=== PATIENT | female | born 2000 | race Caucasian/White ===

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

== ENCOUNTER 2022-01-29 15:26 | Emergency (ER) | payer OTHER, SELFPAY ==
--- NOTE | 2022-01-29 16:54 | EXP.UTC ---
Discharge Plan Disposition Patient Disposition: Home, Self-Care Condition: Good Prescriptions Prescriptions: New tmwaczbvahjcqhj-ngnguvsnj-QJ [Bromfed DM] 2-30-10 mg/5 mL Syrup 5 ml PO Q6H PRN (Reason: Cough) Qty: 240 0RF ondansetron 4 mg Tablet,Disintegrating 4 mg PO Q8H PRN (Reason: Nausea) Qty: 9 0RF No Action hydroxyzine HCl 25 mg tablet 25 mg PO BID PRN (Reason: anxiety) Qty: 60 5RF norgestimate-ethinyl estradiol [Evz-Bf-Xmlnjnbe] 0.18/0.215/0.25 mg-25 mcg tablet 1 tab PO DAILY Qty: 84 3RF dexmethylphenidate [Focalin XR] 15 mg capsule,ER biphasic 50-50 15 mg PO DAILY Qty: 30 0RF Referrals Follow up/Referrals: Provider,Referral, MD [Primary Care Provider] - See instructions Activity Restrictions/Add. Instructions Additional Instructions/Restrictions: Encourage her to drink plenty of fluids. Give her the medications as directed. Give her tylenol or ibuprofen for pain or fever. Follow up with her regular doctor. GO TO THE ER FOR ANY WORSENING SYMPTOMS Clinical Impressions Clinical Impression: Viral syndrome Instructions Patient Instructions: DI for Viral Syndrome Discharge ED Provider: Sebastián Mueller [facility] General Stated complaint: cough, soa, congestion, sore throat Time Seen by Provider: 01/29/22 16:54 History of Present Illness Provider Complaint: She states that for the past 2 days she has had sore throat, chills, body aches and low grade fever. Related Data Previous Rx's Medication Instructions Recorded hydroxyzine HCl 25 mg tablet 25 mg PO BID PRN anxiety #60 tabs 01/23/22 norgestimate 0.18 mg/0.215 mg/0.25 1 tab PO DAILY #84 tabs 01/23/22 mg-ethinyl estradiol 25 mcg tablet (Zuz-Qt-Yctuywkc) dexmethylphenidate 15 mg 15 mg PO DAILY #30 caps 01/24/22 capsule,extended release [id number] (Focalin XR) azfrlwtyiudcmrk-kzhyuvgdgilvfch-YY 5 ml PO Q6H PRN Cough #240 mL 01/29/22 2 mg-30 mg-10 mg/5 mL oral syrup (Bromfed DM) ondansetron 4 mg disintegrating 4 mg PO Q8H PRN Nausea #9 tabs 01/29/22 tablet Allergies Allergy/AdvReac Type Severity Reaction Status Date / Time No Known Allergies Allergy Verified 01/29/22 17:19 PFSH PFSH Medical History Anxiety Attention Deficit Hyperactivity Disorder (ADHD) Depression Social History Smoking Status: Current some day smoker alcohol intake: never current occupational status: unemployed Travel in the last 8 weeks: None ROS Obtained: Yes All systems reviewed & no additional complaints except as documented Constitutional Constitutional: Reports chills and Reports fever(s) Eyes Eyes: Denies eye discharge ENT Ears, Nose, Mouth, and Throat: Reports as per HPI Cardiovascular Cardiovascular: Denies chest pain Respiratory Respiratory: Denies chest congestion and Reports cough Gastrointestinal Gastrointestingal: Reports nausea; Denies abdominal pain, constipation, cramping, diarrhea or vomiting Musculoskeletal Musculoskeletal: Denies arthralgias Integumentary/Breasts Skin/Breast: Denies rash Neurologic Neurologic: Denies paresthesias Physical Exam General General appearance: alert and in no apparent distress Head Head exam: atraumatic, normocephalic and normal inspection Eye Eye exam: Present normal appearance, PERRL and EOMI ENT ENT exam: Present normal exam, normal oropharynx, mucous membranes moist, TM's normal bilaterally and normal external ear exam Neck Neck exam: Present normal inspection, full ROM and trachea midline; Absent meningismus or lymphadenopathy Chest Chest inspection: Present normal inspection and symmetric chest wall rise; Absent tenderness Respiratory Respiratory exam: Present normal lung sounds bilaterally; Absent respiratory distress Cardiovascular Cardiovascular exam: Present regular rate and normal rhythm; Absent JVD Abdominal Exam Abdominal exam
[2022-01-29 17:18] VITALS: BP 119/75; PULSE 95; RESP 17; TEMP 36.7; O2SAT 99; BMI 37.3
[2022-01-29 18:12] VITALS: BP 119/75; PULSE 95; RESP 17; TEMP 36.7
[2022-01-29 18:19] LABS: Adenovirus,PCR Not Detected (NotDetected); Bordetella Pertussis Not Detected (NotDetected); Chlamydophila Pneumoniae, PCR Not Detected (NotDetected); Coronavirus 19, PCR Not Detected (NotDetected); Coronavirus 229E Not Detected (NotDetected); Coronavirus NL63 Not Detected (NotDetected); Coronavirus OC43 Not Detected (NotDetected); Coronovirus HKU1,PCR Not Detected (NotDetected); Human Metapneumovirus Not Detected (NotDetected); Influenza A, PCR Not Detected (NotDetected); Influenza AH1, 2009 Not Detected (NotDetected); Influenza AH1, PCR Not Detected (NotDetected); Influenza B, PCR Not Detected (NotDetected); Mycoplasma Pneumoniae, PCR Not Detected (NotDetected); Parainfluenza 1, PCR Not Detected (NotDetected); Parainfluenza 2, PCR Not Detected (NotDetected); Parainfluenza 3, PCR Not Detected (NotDetected); Parainfluenza 4, PCR Not Detected (NotDetected); Respiratory Syncytial Virus Not Detected (NotDetected); Rhinovirus/Enterovirus Not Detected (NotDetected)
[2022-01-31 10:52] LABS: Influenza AH3,PCR Detected (NotDetected)
== END 2022-01-29 18:12 | disposition home or self-care (01) ==
PROVIDERS: Emergency Provider Nurse Practitioner Family
DX: J10.1 Influenza due to other identified influenza virus with other respiratory manifestations
CPT/HCPCS: 87581; 87632; 87798; 99212; C9803; G0463; U0003; U0005

== ENCOUNTER 2022-03-25 18:54 | Emergency (ER) | payer OTHER, SELFPAY ==
[2022-03-25 18:57] VITALS: BP 143/69; PULSE 96; RESP 16; TEMP 36.6; O2SAT 99; BMI 40.2
--- NOTE | 2022-03-25 19:29 | ECG_ITS ---
APPROVED REPORT Exam: Resting ECG HR:97 bpm ECG Measurements Heart Rate 97 AXES FL 170 P 64 QRSd 98 QRS 139 QT 335 T 59 QTc 389 Conclusion SINUS RHYTHM INDETERMINATE AXIS LOW QRS VOLTAGE IN PRECORDIAL LEADS [QRS DEFLECTION < 1.0 mV IN CHEST LEADS] PATTERN CONSISTENT WITH PULMONARY DISEASE ABNORMAL ECG UNCONFIRMED REPORT Electronically signed by : Alexey Ramirez MD 03/26/2022 21:32:40
[2022-03-25 19:38] LABS: Coronavirus 19, PCR Not Detected (NotDetected); Influenza A, PCR Not Detected (NotDetected); Influenza B, PCR Not Detected (NotDetected)
[2022-03-25 19:53] LABS: Strep Scrn Group A (Rapid) Negative (Negative)
--- NOTE | 2022-03-25 19:58 | HMH.EDGENADL ---
Discharge Plan Disposition Patient Disposition: Home, Self-Care Condition: Good Prescriptions Prescriptions: New fluticasone propionate [Allergy Relief (fluticasone)] 50 mcg/actuation spray,suspension 2 spray intranasal DAILY PRN (Reason: allergy symptoms) Qty: 16 0RF Rx Instructions: administer into each nostril cetirizine 10 mg tablet 10 mg PO DAILY Qty: 30 0RF omeprazole 40 mg capsule,delayed release(DR/EC) 40 mg PO DAILY Qty: 30 0RF No Action hydroxyzine HCl 25 mg tablet 25 mg PO BID PRN (Reason: anxiety) Qty: 60 5RF norgestimate-ethinyl estradiol [Lcn-Br-Qanpsnde] 0.18/0.215/0.25 mg-25 mcg tablet 1 tab PO DAILY Qty: 84 3RF metronidazole [Flagyl] 375 mg capsule 375 mg PO Q8H Qty: 21 0RF dexmethylphenidate [Focalin XR] 15 mg capsule,ER biphasic 50-50 15 mg PO DAILY Qty: 30 0RF ondansetron 4 mg Tablet,Disintegrating 4 mg PO Q8H PRN (Reason: Nausea) Qty: 9 0RF Referrals Follow up/Referrals: Radha Tay PA [Primary Care Provider] - See instructions Activity Restrictions/Add. Instructions Additional Instructions/Restrictions: You were evaluated in the emergency department today. At this time, we feel that your symptoms are due to both allergic rhinitis as well as gastroesophageal reflux. Please hand picker your prescriptions and take them as prescribed. Follow-up with your primary care provider over the next 48 hours. Return to the emergency department for any new or worsening symptoms. Clinical Impressions Clinical Impression: GERD (gastroesophageal reflux disease), Allergic rhinitis Instructions Patient Instructions: Allergic Rhinitis, DI for Gastroesophageal Reflux Disease (GERD) Discharge ED Provider: Pura Eduardo General Adult HPI General Chief complaint: Headache Stated complaint: crawford DIZZY,CONGESTION BURNING IN CHEST Time Seen by Provider: 03/25/22 19:22 Mode of Arrival: Ambulatory Source of Information: Patient Limitations: No Limitations Description of Symptoms (Recalled from ER Triage Doc. by RN): pt c/o head ache and dizzy since last night the pt states also that she has had some burning in her chest that goes down to the belly pt has no hx o fgi related issues pt stated family hx of ulcers History of Present Illness HPI narrative: This patient is a 22-year-old female with past medical history of ADHD presented to the emergency department for evaluation with concern for multiple complaints. Patient states that she has been having headaches, congestion, nausea, and reflux symptoms for the past few days. Siblings at home have also had symptoms of congestion, sore throat, and abdominal pain. Patient also states that she feels lightheaded. She states that her symptoms come and go, and nothing seems to make them better or worse. She states that she has been eating a lot of hot Cheetos and she is concerned that she may have a stomach ulcer, as her dad has a history of stomach ulcers. No other concerns noted at this time. Related Data Previous Rx's Medication Instructions Recorded hydroxyzine HCl 25 mg tablet 25 mg PO BID PRN anxiety #60 tabs 01/23/22 norgestimate 0.18 mg/0.215 mg/0.25 1 tab PO DAILY #84 tabs 01/23/22 mg-ethinyl estradiol 25 mcg tablet (Pvp-Qs-Pbsjokga) ondansetron 4 mg disintegrating 4 mg PO Q8H PRN Nausea #9 tabs 01/29/22 tablet dexmethylphenidate 15 mg 15 mg PO DAILY #30 caps 02/19/22 capsule,extended release [id number] (Focalin XR) metronidazole 375 mg capsule 375 mg PO Q8H #21 caps 02/19/22 (Flagyl) cetirizine 10 mg tablet 10 mg PO DAILY #30 tabs 03/25/22 fluticasone propionate 50 2 spray intranasal DAILY PRN 03/25/22 mcg/actuation nasal allergy symptoms #16 grams spray,suspension (Allergy Relief (fluticasone)) omeprazole 40 mg capsule,delayed 40 mg PO DAILY #30 caps 03/25/22 release Allergies Allergy/AdvReac Type Severity Reaction Status Date / Time No Known Allergies Allergy Verified
[2022-03-25 20:26] VITALS: BP 137/74; PULSE 89; RESP 16; TEMP 36.6; O2SAT 99
== END 2022-03-25 20:33 | disposition home or self-care (01) ==
PROVIDERS: Emergency Provider Emergency Medicine; PCP Physician Assistant
DX: K21.9 Gastro-esophageal reflux disease without esophagitis (principal); J30.9 Allergic rhinitis, unspecified; R42 Dizziness and giddiness; R51.9 Headache, unspecified; F90.9 Attention-deficit hyperactivity disorder, unspecified type; F41.9 Anxiety disorder, unspecified; F17.210 Nicotine dependence, cigarettes, uncomplicated; Z20.822 Contact with and (suspected) exposure to COVID-19
CPT/HCPCS: 87430; 93005; 99284; C9803; U0003; U0005

== ENCOUNTER → 2022-03-31 16:40 | Outpatient (CLI) | payer OTHER, SELFPAY ==
[2022-03-31 20:42] LABS: Basophils # 0.1 K/mm3 (0-0.2); Basophils % 0.8 % (0.1-2.0); Eosinophils # 0.4 K/mm3 (0.0-0.4); Eosinophils % 3.4 % (0.1-12.0); Hematocrit 38.3 % (37.0-47.0); Hemoglobin 12.7 g/dL (12.2-16.2); Lymphocytes # 4.1 K/mm3 (0.7-4.5); Lymphocytes % 39.9 % (10-50); Mean Corpuscular HGB Conc 33.3 g/dL (31.8-35.4); Mean Corpuscular Volume 81.1 fl (81-99); Mean Platelet Volume 9.1 fl (7.4-10.4); Monocytes # 0.4 K/mm3 (0.1-1.0); Neutrophils # 5.4 K/mm3 (1.8-7.8); Platelet Count 307 K/mm3 (142-424); Red Blood Count 4.72 M/mm3 (4.20-5.40); Red Cell Distribution Width 15.3 % (11.5-17.5); White Blood Count 10.3 K/mm3 (4.5-13.0)
[2022-03-31 20:53] LABS: Alanine Aminotransferase 21 U/L (12-78); Albumin Level 4.4 g/dl (3.5-5.0); Albumin/Globulin Ratio 1.4 (1.1-1.8); Alkaline Phosphatase 106 U/L (38-126); Anion Gap 12.9 mEq/L (5-15); Aspartate Amino Transferase 28 U/L (14-36); Bilirubin,Total 0.2 mg/dl (0.2-1.3); Blood Urea Nitrogen 8 mg/dl (7-17); Calcium 8.4 mg/dl (8.4-10.2); Carbon Dioxide 27 mmol/L (22.0-30.0); Chloride 105 mmol/L (98-107); Chol/HDL Ratio 3.4 (1-3.5); Cholesterol 168 mg/dl (140-200); Estimated Glomerular Filt Rate 127 ml/min (>60); GFR (African American) 154 ML/MIN (>60); Globulin 3.2 g/dL (1.3-3.2); Glucose 90 mg/dl (74-100); HDL Cholesterol 50 mg/dl (40-60); Lipase 88 U/L (23-300); Potassium 3.9 mmoL/L (3.5-5.1); Sodium 141 mmol/L (136-145); Total Protein,Serum 7.6 g/dl (6.3-8.2); Triglycerides 148 mg/dl (30-150); VLDL Cholesterol 30 mg/dL (0-40)
[2022-03-31 21:04] LABS: Direct LDL Cholesterol 86.94 mg/dL (100-129)
[2022-03-31 21:10] LABS: 25-OH Vitamin D, Total 34.4 ng/mL (30-100)
[2022-03-31 21:11] LABS: Free T4 (Free Thyroxine) 0.91 ng/dl (0.78-2.19)
[2022-03-31 21:23] LABS: Thyroid Stimulating Hormone 1.65 uIU/mL (0.465-4.68)
== END ==
PROVIDERS: PCP Emergency Medicine; Visit Provider Emergency Medicine
DX: R10.10 Upper abdominal pain, unspecified (principal); E55.9 Vitamin D deficiency, unspecified
CPT/HCPCS: 80053; 80061; 82306; 83690; 84439; 84443; 85025

== ENCOUNTER 2022-04-03 11:37 | Day surgery (SDC) | payer OTHER, SELFPAY ==
[2022-04-02 10:01] VITALS: BMI 42.8
[2022-04-03 11:54] VITALS: BP 136/76; PULSE 90; RESP 18; TEMP 36.6; O2SAT 97
[2022-04-03 12:05] LABS: Urine Pregnancy, HCG Qual. Negative (Negative)
--- NOTE | 2022-04-03 12:13 | P.PN_ITS ---
[facility] Disclaimer: The information contained in this section may have been updated after the patient was seen, as this information can be updated by other users. Medical History Anxiety Attention Deficit Hyperactivity Disorder (ADHD) Depression Surgical History No significant past surgical history Family History Other Family history of myocardial infarction Family history of stroke Social History Smoking Status: Former smoker alcohol intake: current substance use type: denies use current occupational status: unemployed Travel in the last 8 weeks: None household members: family housing: house lives independently: No education level: high school caffeine: Yes special tonia needs: No agree to transfusion: No do you feel safe at home: Yes victim of physical abuse: No victim of emotional abuse: No victim of sexual abuse: No would you like helpful sources: No [facility] Anesthesia Checklist Patient Identification Patient Identification: Arm Band and Verbal (Name & ) Structural Data Admitted From: Home Planned Operative Procedure/s: EGD Consent for Planned Operative Procedure(s) Verified: Yes NPO Status Verified Time NPO: 00:00 Airway Assessment C-Spine Mobility Assessed: Yes TMJ Mobility Assessed: Yes Dentition: Good Dentition Neurological Assessment Level of Consciousness: Awake Hx Seizures: No Numbness or tingling in extremities: No Anesthesia Plan Anesthesia Risk discussed: Yes Anesthesia Plan: Verified ASA Class: II Anesthesia Type: MAC
[2022-04-03 12:21] VITALS: O2SAT 97
--- NOTE | 2022-04-03 12:29 | HMH.SCOPE ---
Procedure: Date: 04/03/22 Patient Date of :: 2000 Procedure Performed:: EGD & biopsies Indications:: Abdominal pain, nausea/vomiting Performing Provider:: Brady Bhardwaj MD Referring Provider:: George Hopson Sedation:: Propofol Procedure:: The gastroscope was gently passed through the incisoral orifice into the oral cavity and under direct visualization the esophagus was intubated. The endoscope was passed down the esophagus, through the stomach, and into the duodenum. Color, texture, mucosa, and anatomy of the esophagus, stomach, and duodenum were carefully examined with the scope. Findings:: Oropharynx: normal Esophagus: normal EG Junction: intact at 40 cm Cardia: normal Fundus: normal Body: normal, random biopsies obtained for evaluation of h.pylori Antrum: normal Duodenal bulb: normal Duodenum (second and third portion): normal Impression: Normal EGD. No evidence of ulcer disease or hiatus hernia. Specimens:: Gastric Recommendations:: Conservative symptomatic therapy only Complications:: None Estimated blood obtained (mL): 0
[2022-04-03 12:32] VITALS: BP 111/61; PULSE 84; RESP 16; TEMP 36.9; O2SAT 95
[2022-04-03 12:42] VITALS: BP 103/63; PULSE 83; RESP 14; O2SAT 95
[2022-04-03 12:52] VITALS: BP 113/51; PULSE 82; RESP 16; O2SAT 95
[2022-04-03 13:02] VITALS: BP 133/93; PULSE 83; RESP 16; TEMP 36.6; O2SAT 99
== END 2022-04-03 13:10 | disposition home or self-care (01) ==
PROVIDERS: PCP Emergency Medicine; Visit Provider Internal Medicine Gastroenterology
PROC: 0DJ08ZZ Inspection of Upper Intestinal Tract, Via Natural or Artificial Opening Endoscopic (ICD-10-PCS; CPT 43235; principal; 2022-04-03 13:00)
DX: K21.9 Gastro-esophageal reflux disease without esophagitis (principal); R10.9 Unspecified abdominal pain; R11.2 Nausea with vomiting, unspecified; K29.70 Gastritis, unspecified, without bleeding; B96.81 Helicobacter pylori [H. pylori] as the cause of diseases classified elsewhere; Z79.899 Other long term (current) drug therapy
CPT/HCPCS: 43239; 81025

== ENCOUNTER → 2022-04-22 09:05 | Outpatient (CLI) | payer OTHER, SELFPAY ==
--- NOTE | 2022-04-22 09:05 | US_ITS ---
FINAL REPORT TECHNIQUE: Sonographic images of the right upper quadrant were obtained. CLINICAL HISTORY: abdominal pain FINDINGS: The liver is homogeneous. There is no focal hepatic lesion or intrahepatic biliary dilatation. The gallbladder is well filled. There are no gallstones. There is no pericholecystic fluid collection or gallbladder wall thickening. The common duct measures 0.14 cm which is within normal limits. The pancreatic tail is partially obscured by bowel gas. Otherwise, it has a normal appearance. The right kidney measures 12 cm in yuoz-ri-axpk length. There is no hydronephrosis, mass, or stone. There is no right upper quadrant ascites. IMPRESSION: Unremarkable right upper quadrant ultrasound. No gallstones, pericholecystic fluid collection, or gallbladder wall thickening. Reviewed, Interpreted and Dictated by Devorah Mendoza MD Transcribed by Shazia Ramey Authenticated and . [facility]
== END ==
PROVIDERS: PCP Physician Assistant; Visit Provider Emergency Medicine
DX: R10.10 Upper abdominal pain, unspecified (principal)
CPT/HCPCS: 76705

== ENCOUNTER 2022-06-01 18:31 | Emergency (ER) | payer OTHER, SELFPAY ==
[2022-06-01 18:34] VITALS: BP 138/83; PULSE 101; RESP 18; O2SAT 98; BMI 41.1
--- NOTE | 2022-06-01 19:12 | PC.NURSE ---
urine collected and sent to lab, no further needs at this time. Call light within reach
--- NOTE | 2022-06-01 19:16 | HMH.EDGENADL ---
Discharge Plan Disposition Patient Disposition: Home, Self-Care Condition: Good Prescriptions Prescriptions: No Action hydroxyzine HCl 25 mg tablet 25 mg PO BID PRN (Reason: anxiety) Qty: 60 5RF sertraline 50 mg tablet 50 mg PO DAILY Qty: 30 0RF clarithromycin 500 mg tablet 500 mg PO BID 14 Days Qty: 28 0RF lansoprazole [Prevacid] 30 mg capsule,delayed release(DR/EC) 30 mg PO DAILY 14 Days Qty: 14 0RF dexmethylphenidate [Focalin XR] 15 mg capsule,ER biphasic 50-50 15 mg PO DAILY Qty: 30 0RF spinosad [Natroba] 0.9 % suspension 120 ml topical Q7D Qty: 120 1RF cetirizine 10 mg tablet 10 mg PO DAILY omeprazole 40 mg capsule,delayed release(DR/EC) 40 mg PO DAILY norgestimate-ethinyl estradiol [Zjb-Wl-Evzvqezv] 0.18/0.215/0.25 mg-25 mcg tablet 1 tab PO DAILY ondansetron 4 mg Tablet,Disintegrating 4 mg PO Q8H PRN (Reason: Nausea) Qty: 9 0RF fluticasone propionate [Allergy Relief (fluticasone)] 50 mcg/actuation spray,suspension 2 spray intranasal DAILY PRN (Reason: allergy symptoms) Qty: 16 0RF Rx Instructions: administer into each nostril Referrals Follow up/Referrals: Radha Tay PA [Primary Care Provider] - See instructions Clinical Impressions Clinical Impression: Hemorrhoids Instructions Patient Instructions: DI for Hemorrhoids Discharge ED Provider: Colton Amaya General Adult HPI General Chief complaint: Vaginal Bleeding Stated complaint: Bleeding from vag Possible retal bleeding Time Seen by Provider: 06/01/22 18:35 Mode of Arrival: Ambulatory Source of Information: Patient Limitations: No Limitations Description of Symptoms (Recalled from ER Triage Doc. by RN): Presents POV due to multiple complaints. PAtiet reports 1 episode of bright red blood on toilet paper after bowel moveent last night. Denies abdominal pain or further episodes. Patiet also reports concerns for vaginal bleeding. Patient states pink tinged olor on toilet paper after wiping multiple times today. LMP Beginning of April. History of Present Illness HPI narrative: Patient is a 22-year-old female with no pertinent past medical history who presents with multiple complaints. She says that last night she had an episode in which she had bright red blood on toilet paper after she went to the bathroom. She says that this did not happen again but she says that today she felt like there was something wet in her underwear and noted a pink-tinged discharge. Her last known period was the beginning of April. She is wondering if she could potentially be at this time. Denies any abdominal pain. Denies any urinary symptoms. Related Data Home Medications Medication Instructions Recorded Confirmed cetirizine 10 mg tablet 10 mg PO DAILY allergies 04/02/22 04/16/22 norgestimate 0.18 mg/0.215 mg/0.25 1 tab PO DAILY control 04/02/22 04/16/22 mg-ethinyl estradiol 25 mcg tablet (Rqn-Sw-Jrukylul) omeprazole 40 mg capsule,delayed 40 mg PO DAILY Reflux/Acid reflux 04/02/22 04/16/22 release Previous Rx's Medication Instructions Recorded hydroxyzine HCl 25 mg tablet 25 mg PO BID PRN anxiety #60 tabs 01/23/22 ondansetron 4 mg disintegrating 4 mg PO Q8H PRN Nausea #9 tabs 01/29/22 tablet fluticasone propionate 50 2 spray intranasal DAILY PRN 03/25/22 mcg/actuation nasal allergy symptoms #16 grams spray,suspension (Allergy Relief (fluticasone)) clarithromycin 500 mg tablet 500 mg PO BID 14 days #28 tabs 04/08/22 lansoprazole 30 mg capsule,delayed 30 mg PO DAILY 14 days #14 caps 04/08/22 release (Prevacid) dexmethylphenidate 15 mg 15 mg PO DAILY ADHD #30 caps 04/16/22 capsule,extended release [id number] (Focalin XR) sertraline 50 mg tablet 50 mg PO DAILY #30 tabs 04/16/22 spinosad 0.9 % topical suspension 120 ml topical Q7D 2 doses #120 mL 05/01/22 (Natroba) Allergies Allergy/AdvReac Type Severity Reaction Status Date / T
[2022-06-01 19:18] LABS: Urine Pregnancy, HCG Qual. Negative (Negative)
[2022-06-01 19:35] VITALS: BP 140/92; PULSE 64; RESP 15; TEMP 36.8; O2SAT 97
== END 2022-06-01 19:38 | disposition home or self-care (01) ==
PROVIDERS: Emergency Provider Student in an Organized Health Care Education/Training Program; PCP Physician Assistant
DX: N93.9 Abnormal uterine and vaginal bleeding, unspecified (principal); K64.9 Unspecified hemorrhoids
CPT/HCPCS: 81025; 99283

== ENCOUNTER → 2022-06-02 14:05 | Outpatient (CLI) | payer OTHER, SELFPAY ==
[2022-06-02 18:36] LABS: Basophils # 0.1 K/mm3 (0-0.2); Eosinophils # 0.5 K/mm3 (0.0-0.4); Eosinophils % 3.5 % (0.1-12.0); Hematocrit 40.8 % (37.0-47.0); Hemoglobin 13.2 g/dL (12.2-16.2); Lymphocytes # 4.1 K/mm3 (0.7-4.5); Lymphocytes % 31.4 % (10-50); Mean Corpuscular HGB Conc 32.5 g/dL (31.8-35.4); Mean Corpuscular Hemoglobin 26.4 pg (27.0-31.2); Mean Corpuscular Volume 81.2 fl (81-99); Mean Platelet Volume 9.1 fl (7.4-10.4); Monocytes # 0.8 K/mm3 (0.1-1.0); Monocytes % 5.7 % (1.7-9.3); Neutrophils # 7.7 K/mm3 (1.8-7.8); Neutrophils % 58.4 % (37.0-80.0); Platelet Count 306 K/mm3 (142-424); Red Blood Count 5.02 M/mm3 (4.20-5.40); Red Cell Distribution Width 14.9 % (11.5-17.5); White Blood Count 13.1 K/mm3 (4.5-13.0)
[2022-06-02 19:33] LABS: HCG,Quantitative < 2 mIU/ml (0-5.42)
== END ==
PROVIDERS: PCP Nurse Practitioner Family; Visit Provider Nurse Practitioner Family
DX: R53.83 Other fatigue (principal); N93.9 Abnormal uterine and vaginal bleeding, unspecified; Z32.00 Encounter for pregnancy test, result unknown
CPT/HCPCS: 84702; 85025

== ENCOUNTER → 2022-07-21 23:20 | Outpatient (CLI) | payer OTHER, SELFPAY ==
[2022-07-21 19:33] LABS: Benzodiazepines Screen,Urine Negative ng/ml (<200)
[2022-07-21 19:34] LABS: Amphetamine/Metha Screen,Urine Negative ng/ml (<1000)
[2022-07-21 19:35] LABS: Barbiturates Screen,Urine Negative ng/ml (<200); Cannabinoid Screen,Urine Negative ng/ml (<50)
[2022-07-21 19:36] LABS: Cocaine Screen,Urine Negative ng/ml (<300); Methadone Screen,Urine Negative ng/ml (<300)
[2022-07-21 19:37] LABS: Opiate Screen,Urine Negative ng/ml (<300)
[2022-07-21 19:38] LABS: Phencyclidine Screen,Urine Negative ng/ml (<25)
== END ==
PROVIDERS: PCP Physician Assistant; Visit Provider Physician Assistant
DX: F90.9 Attention-deficit hyperactivity disorder, unspecified type (principal)
CPT/HCPCS: 80305

== ENCOUNTER 2022-10-05 11:08 | Emergency (ER) | payer SELFPAY ==
[2022-10-05 11:09] VITALS: BP 129/81; PULSE 90; RESP 16; TEMP 36.6; O2SAT 99; BMI 46.3
--- NOTE | 2022-10-05 11:26 | EXP.UTC ---
Discharge Plan Disposition Patient Disposition: Home, Self-Care Condition: Good Prescriptions Prescriptions: New ciprofloxacin-dexamethasone 0.3-0.1 % Drops,Suspension 2 drp Ear-Right BID 7 Days Qty: 1 0RF No Action hydroxyzine HCl 25 mg tablet 25 mg PO BID PRN (Reason: anxiety) Qty: 60 5RF sertraline 50 mg tablet 50 mg PO DAILY Qty: 30 0RF medroxyprogesterone [Depo-Provera] 150 mg/mL suspension 150 mg IM [id number] Qty: 1 4RF dexmethylphenidate [Focalin XR] 15 mg capsule,ER biphasic 50-50 15 mg PO DAILY Qty: 30 0RF olanzapine 5 mg tablet 5 mg PO HS Qty: 30 2RF Referrals Follow up/Referrals: Radha Tay PA [Primary Care Provider] - See instructions Activity Restrictions/Add. Instructions Additional Instructions/Restrictions: Use the ear drops as directed. Follow up with your regular doctor. GO TO THE ER FOR ANY WORSENING SYMPTOMS Clinical Impressions Clinical Impression: External otitis of right ear Instructions Patient Instructions: How to Instill Ear Drops, Otitis Externa, DI for Otitis Externa Discharge ED Provider: Sebastián Mueller [facility] General Stated complaint: ear pain Mode of Arrival: Ambulatory Source of Information: Patient Limitations: No Limitations Time Seen by Provider: 10/05/22 11:17 Description of Symptoms (Recalled from Triage Doc. by RN): Patient reports right ear pain since yesterday. HEENT Symptoms (Recalled from RN notes): Yes Resp Symptoms (Recalled from RN notes): No Skin Symptoms (Recalled from RN notes): No MS Symptoms (Recalled from RN notes): No Functional Status (Recalled from RN notes): wnl History of Present Illness Provider Complaint: She c/o right ear pain and discharge from her right ear for the past 2 days. She has been swimming a lot and she thinks that she has swimmer's ear. She denies any injury to her ear. She denies any other complaints. Related Data Previous Rx's Medication Instructions Recorded hydroxyzine HCl 25 mg tablet 25 mg PO BID PRN anxiety #60 tabs 01/23/22 sertraline 50 mg tablet 50 mg PO DAILY #30 tabs 04/16/22 medroxyprogesterone 150 mg/mL 150 mg IM [id number] #1 mL 07/03/22 intramuscular suspension (Depo-Provera) dexmethylphenidate 15 mg 15 mg PO DAILY ADHD #30 caps 07/21/22 capsule,extended release [id number] (Focalin XR) olanzapine 5 mg tablet 5 mg PO HS #30 tabs 07/30/22 ciprofloxacin 0.3 %-dexamethasone 2 drp Ear-Right BID 7 days #1 ea 10/05/22 0.1 % ear drops,suspension Allergies Allergy/AdvReac Type Severity Reaction Status Date / Time No Known Allergies Allergy Verified 07/21/22 15:13 Worker's Comp Is this a Worker's Comp case?: No [facility] Disclaimer: The information contained in this section may have been updated after the patient was seen, as this information can be updated by other users. Medical History Anxiety Attention Deficit Hyperactivity Disorder (ADHD) Depression Surgical History No significant past surgical history Family History Other Family history of myocardial infarction Family history of stroke Social History Smoking Status: Current some day smoker tobacco type: e-cigarettes alcohol intake: current substance use type: denies use current occupational status: unemployed Travel in the last 8 weeks: None household members: family housing: house lives independently: No education level: high school caffeine: Yes special tonia needs: No agree to transfusion: No do you feel safe at home: Yes victim of physical abuse: No victim of emotional abuse: No victim of sexual abuse: No would you like helpful sources: No ROS Obtained: Yes All systems reviewed & no additional complaints except as documented Const
[2022-10-05 11:58] VITALS: BP 129/81; PULSE 90; RESP 16; TEMP 36.6; O2SAT 99
--- NOTE | 2022-10-05 14:23 | EXP.UTC ---
Discharge Plan Disposition Patient Disposition: Home, Self-Care Condition: Good Prescriptions Prescriptions: New rgumguiq-mhanoodfj-YD 3.5-10,000-1 mg/mL-unit/mL-% solution 4 drp Ear-Right Q8H 7 Days Qty: 10 0RF No Action hydroxyzine HCl 25 mg tablet 25 mg PO BID PRN (Reason: anxiety) Qty: 60 5RF sertraline 50 mg tablet 50 mg PO DAILY Qty: 30 0RF medroxyprogesterone [Depo-Provera] 150 mg/mL suspension 150 mg IM [id number] Qty: 1 4RF dexmethylphenidate [Focalin XR] 15 mg capsule,ER biphasic 50-50 15 mg PO DAILY Qty: 30 0RF olanzapine 5 mg tablet 5 mg PO HS Qty: 30 2RF Referrals Follow up/Referrals: Radha Tay PA [Primary Care Provider] - See instructions Activity Restrictions/Add. Instructions Additional Instructions/Restrictions: Use the ear drops as directed. Follow up with your regular doctor. GO TO THE ER FOR ANY WORSENING SYMPTOMS Clinical Impressions Clinical Impression: External otitis of right ear Instructions Patient Instructions: How to Instill Ear Drops, Otitis Externa, DI for Otitis Externa Discharge ED Provider: Sebastián Mueller [facility] General Stated complaint: ear pain Mode of Arrival: Ambulatory Source of Information: Patient Limitations: No Limitations Time Seen by Provider: 10/05/22 11:17 Description of Symptoms (Recalled from Triage Doc. by RN): Patient reports right ear pain since yesterday. HEENT Symptoms (Recalled from RN notes): Yes Resp Symptoms (Recalled from RN notes): No Skin Symptoms (Recalled from RN notes): No MS Symptoms (Recalled from RN notes): No Functional Status (Recalled from RN notes): wnl History of Present Illness Provider Complaint: She c/o right ear pain and discharge for the past 2 days. She has been swimming a lot and thinks that she has swimmer's ear. Related Data Previous Rx's Medication Instructions Recorded hydroxyzine HCl 25 mg tablet 25 mg PO BID PRN anxiety #60 tabs 01/23/22 sertraline 50 mg tablet 50 mg PO DAILY #30 tabs 04/16/22 medroxyprogesterone 150 mg/mL 150 mg IM [id number] #1 mL 04/27/23 intramuscular suspension (Depo-Provera) dexmethylphenidate 15 mg 15 mg PO DAILY ADHD #30 caps 07/21/22 capsule,extended release -43 (Focalin XR) olanzapine 5 mg tablet 5 mg PO HS #30 tabs 07/30/22 drmkrbrw-yxsknkssq-gnkvbbcia 3.5 4 drp Ear-Right Q8H 7 days #10 mL 10/05/22 mg/mL-10,000 unit/mL-1 % ear solution Allergies Allergy/AdvReac Type Severity Reaction Status Date / Time No Known Allergies Allergy Verified 07/21/22 15:13 Worker's Comp Is this a Worker's Comp case?: No [facility] Disclaimer: The information contained in this section may have been updated after the patient was seen, as this information can be updated by other users. Medical History Anxiety Attention Deficit Hyperactivity Disorder (ADHD) Depression Surgical History No significant past surgical history Family History Other Family history of myocardial infarction Family history of stroke Social History Smoking Status: Current some day smoker tobacco type: e-cigarettes alcohol intake: current substance use type: denies use current occupational status: unemployed Travel in the last 8 weeks: None household members: family housing: house lives independently: No education level: high school caffeine: Yes special tonia needs: No agree to transfusion: No do you feel safe at home: Yes victim of physical abuse: No victim of emotional abuse: No victim of sexual abuse: No would you like helpful sources: No ROS Obtained: Yes All systems reviewed & no additional complaints except as documented Constitutional Constitutional: Denies chills and Denies fever(s) Eyes Ey
== END 2022-10-05 11:59 | disposition home or self-care (01) ==
PROVIDERS: Emergency Provider Nurse Practitioner Family; PCP Physician Assistant
DX: H60.91 Unspecified otitis externa, right ear (principal); F17.290 Nicotine dependence, other tobacco product, uncomplicated; F90.9 Attention-deficit hyperactivity disorder, unspecified type; F41.9 Anxiety disorder, unspecified; F32.A Depression, unspecified
CPT/HCPCS: 99212; 99214; G0463

== ENCOUNTER 2022-10-07 19:53 | Emergency (ER) | payer SELFPAY ==
[2022-10-07 20:04] VITALS: BP 138/74; PULSE 94; RESP 18; TEMP 36.8; O2SAT 96; BMI 41.1
--- NOTE | 2022-10-07 20:23 | PC.NURSE ---
Rounded on patient, no concerns voiced at this time.
--- NOTE | 2022-10-07 20:37 | HMH.EDGENADL ---
Discharge Plan Disposition Patient Disposition: Home, Self-Care Condition: Good Prescriptions Prescriptions: New ibuprofen [IBU] 800 mg tablet 800 mg PO Q8H PRN (Reason: pain) Qty: 20 0RF amoxicillin-pot clavulanate 875-125 mg tablet 1 tab PO Q12H Qty: 20 0RF No Action hydroxyzine HCl 25 mg tablet 25 mg PO BID PRN (Reason: anxiety) Qty: 60 5RF sertraline 50 mg tablet 50 mg PO DAILY Qty: 30 0RF medroxyprogesterone [Depo-Provera] 150 mg/mL suspension 150 mg IM [id number] Qty: 1 4RF dexmethylphenidate [Focalin XR] 15 mg capsule,ER biphasic 50-50 15 mg PO DAILY Qty: 30 0RF olanzapine 5 mg tablet 5 mg PO HS Qty: 30 2RF afoipvce-tbcjndksl-LE 3.5-10,000-1 mg/mL-unit/mL-% solution 4 drp Ear-Right Q8H 7 Days Qty: 10 0RF Referrals Follow up/Referrals: Radha Tay PA [Primary Care Provider] - See instructions Activity Restrictions/Add. Instructions Additional Instructions/Restrictions: You were evaluated in the emergency department today. Please strip picker your prescription for oral antibiotics at the pharmacy and take the full course as prescribed. Use your eardrops twice a day for 7 days. Put 4 drops in the affected ear. supervisor corduroy cutting your prescription for ibuprofen and take as needed for severe pain as well. You may also take Tylenol in addition to this. Return to the emergency department for any new or worsening symptoms. Clinical Impressions Clinical Impression: Otitis externa Qualifiers: Otitis externa type: swimmer's ear Chronicity: acute Laterality: right Qualified Code(s): H60.331 - Swimmer's ear, right ear Instructions Patient Instructions: Middle Ear Infection, DI for Otitis Externa Discharge ED Provider: Pura Eduardo General Adult HPI General Chief complaint: Ear Stated complaint: RT ear pain and swelling Time Seen by Provider: 10/07/22 20:05 Mode of Arrival: Ambulatory Limitations: No Limitations Description of Symptoms (Recalled from ER Triage Doc. by RN): Patient reports right ear pain that started 3 days ago. States she was seen in [facility] and prescribed medications but does not feel like they have been working. Patient states she has noticed green discharge and reports stabbing pain in ear. History of Present Illness HPI narrative: This patient is a 22-year-old female with a history of obesity presenting to the emergency department for evaluation with concern for purulent drainage from her right ear. She had onset of right ear pain 3 days ago. Patient was evaluated in urgent treatment center on 10/05/2022 according to medical record review and prescribed neomycin drops for otitis externa. She states that she has been using these drops at home but her drainage and pain have gotten worse. She takes ibuprofen at home with some relief. She denies any fevers or other concerns. Related Data Previous Rx's Medication Instructions Recorded hydroxyzine HCl 25 mg tablet 25 mg PO BID PRN anxiety #60 tabs 01/23/22 sertraline 50 mg tablet 50 mg PO DAILY #30 tabs 04/16/22 medroxyprogesterone 150 mg/mL 150 mg IM [id number] #1 mL 07/03/22 intramuscular suspension (Depo-Provera) dexmethylphenidate 15 mg 15 mg PO DAILY ADHD #30 caps 07/21/22 capsule,extended release [id number] (Focalin XR) olanzapine 5 mg tablet 5 mg PO HS #30 tabs 07/30/22 yhsqtpcd-cpmedyezc-kxbtxvopi 3.5 4 drp Ear-Right Q8H 7 days #10 mL 10/05/22 mg/mL-10,000 unit/mL-1 % ear solution amoxicillin 875 mg-potassium 1 tab PO Q12H #20 tabs 10/07/22 clavulanate 125 mg tablet ibuprofen 800 mg tablet (IBU) 800 mg PO Q8H PRN pain #20 tabs 10/07/22 Allergies Allergy/AdvReac Type Severity Reaction Status Date / Time No Known Allergies Allergy Verified 07/21/22 15:13 [facility] Disclaimer: The information contained in this section may have been updated after the patient was seen, as this information can be updated by other users. Medical History (Reviewed 10/07/22 @ 20:46 by Pura Moore
[2022-10-07 20:48] VITALS: BP 136/80; PULSE 90; RESP 18; TEMP 36.8; O2SAT 98
== END 2022-10-07 20:50 | disposition home or self-care (01) ==
PROVIDERS: Emergency Provider Emergency Medicine; PCP Physician Assistant
DX: H60.331 Swimmer's ear, right ear (principal); F41.9 Anxiety disorder, unspecified; F90.9 Attention-deficit hyperactivity disorder, unspecified type; F32.A Depression, unspecified; F17.290 Nicotine dependence, other tobacco product, uncomplicated
CPT/HCPCS: 99283

== ENCOUNTER 2023-03-05 17:38 | Emergency (ER) | payer OTHER, SELFPAY ==
[2023-03-05 17:40] VITALS: BP 144/89; PULSE 92; RESP 16; TEMP 36.8; O2SAT 96; BMI 36.2
--- NOTE | 2023-03-05 17:50 | HMH.EDGENADL ---
Discharge Plan Disposition Patient Disposition: Home, Self-Care Prescriptions Prescriptions: New ondansetron 4 mg tablet,disintegrating 4 mg PO Q6H PRN (Reason: nausea and vomiting) 5 Days Qty: 20 0RF No Action hydroxyzine HCl 25 mg tablet 25 mg PO BID PRN (Reason: anxiety) Qty: 60 5RF sertraline 50 mg tablet 50 mg PO DAILY Qty: 30 0RF medroxyprogesterone [Depo-Provera] 150 mg/mL suspension 150 mg IM [id number] Qty: 1 4RF dexmethylphenidate [Focalin XR] 15 mg capsule,ER biphasic 50-50 15 mg PO DAILY Qty: 30 0RF olanzapine 5 mg tablet 5 mg PO HS Qty: 30 2RF dvyvyipb-libzrrnuz-ZV 3.5-10,000-1 mg/mL-unit/mL-% solution 4 drp Ear-Right Q8H 7 Days Qty: 10 0RF ibuprofen [IBU] 800 mg tablet 800 mg PO Q8H PRN (Reason: pain) Qty: 20 0RF amoxicillin-pot clavulanate 875-125 mg tablet 1 tab PO Q12H Qty: 20 0RF Referrals Follow up/Referrals: Radha Tay PA [Primary Care Provider] - See instructions Activity Restrictions/Add. Instructions Additional Instructions/Restrictions: Your symptoms are consistent with a viral syndrome. Urine test was negative. Please follow-up with any worsening symptoms. Clinical Impressions Clinical Impression: Nausea vomiting and diarrhea, Maribeth-Gordon tear Instructions Patient Instructions: DI for Diarrhea and Traveler's Diarrhea -- Adult, DI for Diarrhea and Traveler's Diarrhea -- Child, DI for Nausea -- Adult, DI for Nausea -- Child Discharge ED Provider: Cherry Howard General Adult HPI General Chief complaint: Nausea/Vomiting/Diarrhea Stated complaint: vomiting, diarrhea,cough Time Seen by Provider: 03/05/23 17:41 History of Present Illness HPI narrative: Avelino is a 23-year-old previously healthy female with no significant past medical problems presenting today with nausea vomiting diarrhea. States this began this morning. No respiratory symptoms no fevers or chills. States that she had multiple episodes of vomiting and at the very end of the second vomiting episode she had a slight bit of blood that was tinged in her vomit. She is a few days late on her period is concerned she may be and would like to be checked for that. Does have a history of ulcers found on EGD in the past no large hematemesis or melena. Related Data Previous Rx's Medication Instructions Recorded hydroxyzine HCl 25 mg tablet 25 mg PO BID PRN anxiety #60 tabs 01/23/22 sertraline 50 mg tablet 50 mg PO DAILY #30 tabs 04/16/22 medroxyprogesterone 150 mg/mL 150 mg IM [id number] #1 mL 07/03/22 intramuscular suspension (Depo-Provera) dexmethylphenidate 15 mg 15 mg PO DAILY ADHD #30 caps 07/21/22 capsule,extended release [id number] (Focalin XR) olanzapine 5 mg tablet 5 mg PO HS #30 tabs 07/30/22 [id number]-qhgmtksdt-yzhcxygqr 3.5 4 drp Ear-Right Q8H 7 days #10 mL 10/05/22 mg/mL-10,000 unit/mL-1 % ear solution amoxicillin 875 mg-potassium 1 tab PO Q12H #20 tabs 10/07/22 clavulanate 125 mg tablet ibuprofen 800 mg tablet (IBU) 800 mg PO Q8H PRN pain #20 tabs 10/07/22 ondansetron 4 mg disintegrating 4 mg PO Q6H PRN nausea and 03/05/23 tablet vomiting 5 days #20 tabs Allergies Allergy/AdvReac Type Severity Reaction Status Date / Time No Known Allergies Allergy Verified 07/21/22 15:13 [facility] Disclaimer: The information contained in this section may have been updated after the patient was seen, as this information can be updated by other users. Medical History Anxiety Attention Deficit Hyperactivity Disorder (ADHD) Depression Surgical History No significant past surgical history Family History Other Family history of myocardial infarction Family history of stroke Social History Smoking Status: Never smoker alcohol intake: current substance use type: denies use current occupational status: unemployed Travel in the last 8 weeks: None household members: family housing: house lives independently: No education level: high school caffeine: Yes special tonia needs: No agree to transfusion: No do you feel safe at home: Yes victim of physical abuse: No victim of emotional abuse: No victim of sexual abuse: No would you like helpful sources: No ROS Obtained: Yes All systems reviewed & no additional complaints except as documented Physical Exam General General appearance: alert and in no apparent distress Respiratory Respiratory exam: Present normal lung sounds bilaterally; Absent respiratory distress or wheezes Cardiovascular Cardiovascular exam: Present regular rate; Absent tachycardia Abdominal Exam Abdominal exam: Present soft; Absent distention or tenderness Neurological Exam Neurological exam: Present alert and oriented X3 Medical Decision Making Jose Inquiry Pt receiving controlled substance: No Vital Signs: 03/05/23 17:40 Temperature 98.2 F Temperature Source Oral Pulse Rate [Left Radial] 92 H Respiratory Rate 16 Blood Pressure [Right Arm] 144/89 H Blood Pressure Mean [Right Arm] 107 02 Sat by Pulse Oximetry 96 Oxygen Delivery Method Room Air Lab Data Lab results reviewed: Yes I reviewed the patient's lab results. Lab Results 03/05/23 17:59: Urine HCG, Qual Negative Orders (Tests/Meds): ED MEDICATIONS Discontinued Medications Generic Name Dose Route Start Last Admin Trade Name Freq PRN Reason Stop Dose Admin Ondansetron HCl 4 mg 03/05/23 17:49 03/05/23 18:02 Ondansetron 4mg Odt SL 03/05/23 17:50 4 mg ONCE ONE Administration ORDERS Category Date Time Status Urine , HCG Qual. Stat Lab 03/05/23 17:59 Completed Medical Decision Narrative: Very well-appearing 23-year-old female with a benign exam normal hemodynamics no significant tenderness this is not consistent with a surgical emergency. From historical standpoint this is consistent with a Maribeth-Gordon tear and with the nausea vomiting and diarrhea is most likely viral in nature. Patient is young healthy without any significant comorbidities and determining the exact etiology of the virus is not necessary because of would not change my emergent management. I discussed this with the patient told her this would be supportive. No indication for any labs she is not clinically dehydrated does not need IV fluids will give oral Zofran check urine test and will reassess. Reassessment 642. Patient able to tolerate p.o. serial exams benign urine test negative. No further emergency evaluation or treatment needed return precautions discussed patient discharged in stable condition. Critical Care Critical Care Time Critical Care Time: No
[2023-03-05] MEDS: ONDANSETRON 4MG ODT 4 MG SL (18:02)
[2023-03-05 18:12] LABS: Urine Pregnancy, HCG Qual. Negative (Negative)
[2023-03-05 18:52] VITALS: BP 136/81; PULSE 97; RESP 19; TEMP 36.7; O2SAT 99
== END 2023-03-05 18:53 | disposition home or self-care (01) ==
PROVIDERS: Emergency Provider Student in an Organized Health Care Education/Training Program; PCP Physician Assistant
DX: K22.6 Gastro-esophageal laceration-hemorrhage syndrome (principal); R11.2 Nausea with vomiting, unspecified; R19.7 Diarrhea, unspecified
CPT/HCPCS: 81025; 99283

== ENCOUNTER 2023-03-19 17:48 | Outpatient (CLI) | payer OTHER, SELFPAY ==
[2023-03-19 18:28] LABS: Basophils # 0.1 K/mm3 (0-0.2); Basophils % 0.7 % (0.1-2.0); Eosinophils # 0.2 K/mm3 (0.0-0.4); Eosinophils % 2.3 % (0.1-12.0); Hematocrit 42.4 % (37.0-47.0); Hemoglobin 14.5 g/dL (12.2-16.2); Lymphocytes # 1.8 K/mm3 (0.7-4.5); Lymphocytes % 16.5 % (10-50); Mean Corpuscular HGB Conc 34.2 g/dL (31.8-35.4); Mean Corpuscular Hemoglobin 28.3 pg (27.0-31.2); Mean Corpuscular Volume 82.6 fl (81-99); Mean Platelet Volume 8.4 fl (7.4-10.4); Monocytes # 0.6 K/mm3 (0.1-1.0); Monocytes % 5.4 % (1.7-9.3); Neutrophils % 75.1 % (37.0-80.0); Platelet Count 231 K/mm3 (142-424); Red Blood Count 5.14 M/mm3 (4.20-5.40); Red Cell Distribution Width 14.6 % (11.5-17.5); White Blood Count 10.6 K/mm3 (4.8-10.8)
[2023-03-19 18:45] LABS: Amphetamine/Metha Screen,Urine Negative ng/ml (<1000); Barbiturates Screen,Urine Negative ng/ml (<200); Benzodiazepines Screen,Urine Negative ng/ml (<200); Cannabinoid Screen,Urine Negative ng/ml (<50); Cocaine Screen,Urine Negative ng/ml (<300); Methadone Screen,Urine Negative ng/ml (<300); Opiate Screen,Urine Negative ng/ml (<300); Phencyclidine Screen,Urine Negative ng/ml (<25)
[2023-03-19 18:49] LABS: Alanine Aminotransferase 33 U/L (12-78); Albumin Level 4.3 g/dl (3.5-5.0); Albumin/Globulin Ratio 1.4 (1.1-1.8); Alkaline Phosphatase 138 U/L (38-126); Anion Gap 7.9 mEq/L (5-15); Aspartate Amino Transferase 38 U/L (14-36); Bilirubin,Total 0.7 mg/dl (0.2-1.3); Blood Urea Nitrogen 7 mg/dl (7-17); Calcium 8.8 mg/dl (8.4-10.2); Carbon Dioxide 27 mmol/L (22.0-30.0); Chloride 104 mmol/L (98-107); Chol/HDL Ratio 4.2 (1-3.5); Cholesterol 151 mg/dl (140-200); Estimated Glomerular Filt Rate 106 ml/min (>60); GFR (African American) 128 ML/MIN (>60); Globulin 3.1 g/dL (1.3-3.2); Glucose 87 mg/dl (74-100); HDL Cholesterol 36 mg/dl (40-60); Potassium 3.9 mmoL/L (3.5-5.1); Sodium 135 mmol/L (136-145); Total Protein,Serum 7.4 g/dl (6.3-8.2); Triglycerides 109 mg/dl (30-150); VLDL Cholesterol 22 mg/dL (0-40)
[2023-03-19 19:01] LABS: Direct LDL Cholesterol 89.35 mg/dL (100-129)
[2023-03-19 19:08] LABS: 25-OH Vitamin D, Total 30.6 ng/mL (30-100)
[2023-03-19 19:09] LABS: HCG,Quantitative < 2 mIU/ml (0-5.42)
[2023-03-19 19:21] LABS: Thyroid Stimulating Hormone 0.97 uIU/mL (0.465-4.68)
[2023-03-19 19:40] LABS: Vitamin B12 447 pg/mL (239-931)
== END 2023-03-19 23:59 ==
LOC: LAB 17:50
PROVIDERS: PCP Physician Assistant; Visit Provider Physician Assistant
DX: R11.2 Nausea with vomiting, unspecified (principal); F90.9 Attention-deficit hyperactivity disorder, unspecified type; E66.01 Morbid (severe) obesity due to excess calories; Z68.41 Body mass index [BMI] 40.0-44.9, adult; Z79.899 Other long term (current) drug therapy
CPT/HCPCS: 80053; 80061; 80307; 82306; 82607; 84443; 84702; 85025

== ENCOUNTER 2023-05-01 20:17 | Outpatient (CLI) | payer OTHER, SELFPAY | END 2023-05-01 23:59 | LOC: LAB.DROPOF 20:18 | PROVIDERS: PCP Student in an Organized Health Care Education/Training Program; Visit Provider Student in an Organized Health Care Education/Training Program | DX: R11.2 Nausea with vomiting, unspecified (principal); R10.9 Unspecified abdominal pain | CPT/HCPCS: 87635 ==

== ENCOUNTER 2023-06-02 11:22 | Day surgery (SDC) | payer OTHER, SELFPAY ==
[2023-06-01 09:34] VITALS: BMI 40.7
[2023-06-02] MEDS: LACTATED RINGERS 1000ML 1,000 ML 25 ML IV (11:34)
[2023-06-02 11:40] VITALS: BP 126/73; PULSE 91; RESP 18; TEMP 36.3; O2SAT 98
[2023-06-02 12:21] LABS: HCG Qualitative, Serum Negative (Negative)
[2023-06-02 12:32] VITALS: O2SAT 98
--- NOTE | 2023-06-02 12:32 | P.PCN_ITS ---
Procedure: Date: 06/02/23 Patient Date of :: 2000 Procedure Performed:: Esophagogastroduodenoscopy with biopsy Indications:: Gastroesophageal reflux Recent diagnosis of Maribeth-Gordon tear Recent nausea/vomiting History of Helicobacter pylori Note: The patient is status post esophagogastroduodenoscopy with biopsy by Dr. Bhardwaj on April 03, 2022. Esophagogastroduodenoscopy at that time was reporte dly normal without evidence of ulcer or hiatal hernia. Biopsies positive for Helicobacter pylori. Gallbladder ultrasound March 2022: IMPRESSION: Unremarkable right upper quadrant ultrasound. No gallstones, pericholecystic fluid collection, or gallbladder wall thickening. Performing Provider:: Seth Zhang MD Referring Provider:: . Sedation:: Monitored anesthesia care Procedure:: After informed consent was obtained the patient was taken to the endoscopy suite. Sedation ensued after the patient was transferred to the left lateral decubitus position. Pulse, blood pressure, and oxygen saturation were monitored throughout the procedure. The endoscope was advanced beyond the duodenal bulb. Retroflexion within the gastric lumen was accomplished. The gastroscope was carefully removed and the patient was transferred to recovery in stable condition. Please see findings and specimens below for detail. Findings:: Gastroesophageal junction at 38 cm No evidence of ulcer disease or significant gastritis No evidence of hiatal hernia Specimens:: Antral biopsy Recommendations:: Follow-up pathology She will likely benefit from gastroenterology evaluation secondary to persistent nausea/vomiting (possible gastroparesis, possible dysmotility, etc.) Complications:: No immediate Estimated blood obtained (mL): 1 Colonoscopy Component Colonoscopy Component Was a colonoscopy performed during today's procedure?: No
[2023-06-02 12:53] VITALS: BP 148/85; PULSE 89; RESP 16; TEMP 36.2; O2SAT 98
[2023-06-02 13:03] VITALS: BP 160/84; PULSE 87; RESP 16; O2SAT 97
[2023-06-02 13:13] VITALS: BP 132/80; PULSE 86; RESP 16; O2SAT 98
[2023-06-02 13:23] VITALS: BP 130/85; PULSE 82; RESP 18; O2SAT 98
== END 2023-06-02 13:30 | disposition home or self-care (01) ==
PROVIDERS: PCP Physician Assistant; Visit Provider Surgery
PROC: 0DJ08ZZ Inspection of Upper Intestinal Tract, Via Natural or Artificial Opening Endoscopic (ICD-10-PCS; CPT 43235; principal; 2023-06-02 12:30)
DX: K21.9 Gastro-esophageal reflux disease without esophagitis (principal); K22.6 Gastro-esophageal laceration-hemorrhage syndrome; R11.2 Nausea with vomiting, unspecified; Z86.19 Personal history of other infectious and parasitic diseases; K29.50 Unspecified chronic gastritis without bleeding
CPT/HCPCS: 43239; 84703

== ENCOUNTER 2023-07-28 20:39 | Emergency (ER) | payer OTHER, SELFPAY ==
[2023-07-28 21:02] VITALS: BP 168/81; PULSE 73; RESP 18; TEMP 36.7; O2SAT 97; BMI 56.7
[2023-07-28 21:02] LABS: Microscopic, Urine URINE MICROSCOPIC (MICROSCOPIC)
[2023-07-28] MEDS: FAMOTIDINE 20MG/2ML VIAL 20 MG IV (21:02)
[2023-07-28] MEDS: LACTATED RINGERS 1000ML 1,000 ML 999 ML IV (21:02)
[2023-07-28] MEDS: ACETAMINOPHEN 1,000MG/100ML VIAL 1000 MG IV (21:02)
[2023-07-28 21:03] LABS: Appearance,Urine CLEAR (Clear); Bilirubin,Urine Negative (Negative); Blood, Urine Negative (Negative); Color,Urine YELLOW (Yellow); Glucose,Urine (UA) Negative (Negative); Ketones,Urine Negative (Negative); Leukocyte Esterase,Urine Negative (Negative); Nitrate,Urine Negative (Negative); PH,Urine 7.5 (5.0-8.5); Protein,Urine Negative (Negative); Urobilinogen,Urine 0.2 EU/dl (0.2)
[2023-07-28 21:03] LABS: Basophils # 0.1 K/mm3 (0-0.2); Eosinophils # 0.4 K/mm3 (0.0-0.4); Eosinophils % 2.7 % (0.1-12.0); Hematocrit 39.6 % (37.0-47.0); Hemoglobin 13.1 g/dL (12.2-16.2); Lymphocytes % 37.1 % (10-50); Mean Corpuscular HGB Conc 33.1 g/dL (31.8-35.4); Mean Corpuscular Hemoglobin 27.7 pg (27.0-31.2); Mean Corpuscular Volume 83.8 fl (81-99); Mean Platelet Volume 7.9 fl (7.4-10.4); Monocytes # 0.6 K/mm3 (0.1-1.0); Monocytes % 4.6 % (1.7-9.3); Neutrophils # 7.3 K/mm3 (1.8-7.8); Neutrophils % 54.6 % (37.0-80.0); Platelet Count 240 K/mm3 (142-424); Red Blood Count 4.73 M/mm3 (4.20-5.40); Red Cell Distribution Width 14.9 % (11.5-17.5); White Blood Count 13.5 K/mm3 (4.8-10.8)
[2023-07-28] MEDS: ONDANSETRON 4MG/2ML VIAL 4 MG IV (21:03)
[2023-07-28 21:06] LABS: Chloride 107 mmol/L (98-107); Potassium 3.8 mmoL/L (3.5-5.1); Sodium 138 mmol/L (136-145)
--- NOTE | 2023-07-28 21:07 | CT_ITS ---
PROCEDURE INFORMATION: Exam: CT Abdomen And Pelvis With Contrast Exam date and time: 07/28/2023 9:27 PM Age: 23 years old Clinical indication: Abdominal pain; Additional info: Ruq pain/n/v TECHNIQUE: Imaging protocol: Computed tomography of the abdomen and pelvis with contrast. Radiation optimization: All CT scans at this facility use at least one of these dose optimization techniques: automated exposure control; mA and/or kV adjustment per patient size (includes targeted exams where dose is matched to clinical indication); or iterative reconstruction. Contrast material: ISOVUE; Contrast volume: 75 ml; Contrast route: IV; COMPARISON: US GALLBLADDER 04/22/2022 9:20 AM FINDINGS: Liver: Normal. No mass. Gallbladder and bile ducts: Contracted gallbladder. No calcified stones. No ductal dilation. Pancreas: Mild fatty infiltration. No ductal dilation. Spleen: Normal. No splenomegaly. Adrenal glands: Normal. No mass. Kidneys and ureters: Normal. No hydronephrosis. Stomach and bowel: Fecalized terminal ileum indicative of delayed transit. No obstruction. No mucosal thickening. Appendix: No evidence of appendicitis. Intraperitoneal space: Unremarkable. No free air. No significant fluid collection. Vasculature: Unremarkable. No abdominal aortic aneurysm. Lymph nodes: Unremarkable. No enlarged lymph nodes. Urinary bladder: Unremarkable as visualized. Reproductive: Unremarkable as visualized. Bones/joints: Unremarkable. No acute fracture. Soft tissues: Small fat containing umbilical hernia. Mild subcutaneous soft tissue swelling overlying the midline lower spine. IMPRESSION: No acute findings.
[2023-07-28 21:09] LABS: Alanine Aminotransferase 49 U/L (12-78); Albumin Level 3.9 g/dl (3.5-5.0); Albumin/Globulin Ratio 1.2 (1.1-1.8); Alkaline Phosphatase 111 U/L (38-126); Anion Gap 8.8 mEq/L (5-15); Aspartate Amino Transferase 51 U/L (14-36); Bilirubin,Total 0.3 mg/dl (0.2-1.3); Blood Urea Nitrogen 6 mg/dl (7-17); Calcium 8.9 mg/dl (8.4-10.2); Carbon Dioxide 26 mmol/L (22.0-30.0); Creatinine Clearance Estimated 123 mL/min (50-200); Estimated Glomerular Filt Rate 126 ml/min (>60); GFR (African American) 153 ML/MIN (>60); Globulin 3.2 g/dL (1.3-3.2); Glucose 104 mg/dl (74-100); Lipase 73 U/L (23-300); Total Protein,Serum 7.1 g/dl (6.3-8.2)
[2023-07-28 21:14] LABS: HCG Qualitative, Serum Negative (Negative)
[2023-07-28 21:15] LABS: Bacteria,Urine 1+ /lpf; WBC,Urine Occasional #/hpf (0-3)
--- NOTE | 2023-07-28 21:25 | HMH.EDGENADL ---
Discharge Plan Disposition Patient Disposition: Home, Self-Care Condition: Good Prescriptions Prescriptions: New pantoprazole [Protonix] 40 mg tablet,delayed release (DR/EC) 40 mg PO DAILY Qty: 30 0RF ondansetron 4 mg tablet,disintegrating 4 mg PO Q8H PRN (Reason: nausea and vomiting) 4 Days Qty: 12 0RF No Action pantoprazole [Protonix] 40 mg tablet,delayed release (DR/EC) 40 mg PO DAILY Qty: 30 2RF sertraline 50 mg tablet 50 mg PO DAILY Qty: 90 0RF olanzapine 5 mg tablet 5 mg PO HS Qty: 90 0RF hydroxyzine HCl 25 mg tablet 25 mg PO BID PRN (Reason: anxiety) Qty: 30 2RF ibuprofen [IBU] 800 mg tablet 800 mg PO Q8H PRN (Reason: pain) Qty: 20 0RF Referrals Follow up/Referrals: Radha Tay PA [Primary Care Provider] - See instructions Activity Restrictions/Add. Instructions Additional Instructions/Restrictions: You were evaluated in the emergency department today. Please product picker your prescriptions at the pharmacy and take them as prescribed. Follow-up closely with your primary care provider. Eat a bland diet. Return to the emergency department for new or worsening symptoms. Clinical Impressions Clinical Impression: Nausea, vomiting and diarrhea Instructions Patient Instructions: DI for Diarrhea and Traveler's Diarrhea -- Adult, DI for Acute Abdominal Pain, DI for Vomiting -- Adult Discharge ED Provider: Pura Eduardo General Adult HPI General Chief complaint: Abdominal Pain Stated complaint: abd pain, vomiting Time Seen by Provider: 07/28/23 20:44 Mode of Arrival: Ambulatory Source of Information: Patient Limitations: No Limitations Description of Symptoms (Recalled from ER Triage Doc. by RN): Pt to ED with c/o right side abd pain that started yesterday. pt reports she has had diarrhea X3 days, darker colored urine, and N/V that started this morning. Pt reports her symptoms have now mostly resolved but she came in because she needs a work note for missing work today. History of Present Illness HPI narrative: This patient is a 23-year-old female with a history of mood disorder, PTSD, ADHD, GERD, and obesity presenting to the emergency department for evaluation with concern for right upper quadrant abdominal pain, nausea, vomiting, and diarrhea. She notes that her urine is also darker than normal. She states that symptoms had started improving today, but she came in because she needs a work note for missing work. She notes she had issues with abdominal pain in the past and they did an ultrasound of her gallbladder. I reviewed medical records and noted that she had no biliary stones, sludge, or findings concerning for cholecystitis. She also had an EGD with general surgery who advised that she may have sequela of gastroparesis but no evidence of peptic ulcers. No other concerns noted at this time. Related Data Previous Rx's Medication Instructions Recorded ibuprofen 800 mg tablet (IBU) 800 mg PO Q8H PRN pain #20 tabs 10/07/22 hydroxyzine HCl 25 mg tablet 25 mg PO BID PRN anxiety #30 tabs 03/27/23 olanzapine 5 mg tablet 5 mg PO HS #90 tabs 03/27/23 sertraline 50 mg tablet 50 mg PO DAILY #90 tabs 03/27/23 pantoprazole 40 mg tablet,delayed 40 mg PO DAILY #30 tabs 05/01/23 release (Protonix) ondansetron 4 mg disintegrating 4 mg PO Q8H PRN nausea and 07/28/23 tablet vomiting 4 days #12 tabs pantoprazole 40 mg tablet,delayed 40 mg PO DAILY #30 tabs 07/28/23 release (Protonix) Allergies Allergy/AdvReac Type Severity Reaction Status Date / Time No Known Allergies Allergy Verified 06/02/23 11:39 [facility] Disclaimer: The information contained in this section may have been updated after the patient was seen, as this information can be updated by other users. Medical History Depression Anxiety Attention Deficit Hyperactivity Disorder (ADHD) Surgical History No significant past surgical history Family History Other Family history of myocardial infarction Family history of stroke Social History Smoking Status: Never smoker alcohol intake: current alcohol intake frequency: holidays/special occasions only substance use type: denies use current occupational status: unemployed Travel in the last 8 weeks: None household members: family housing: house lives independently: No education level: high school caffeine: Yes special tonia needs: No agree to transfusion: No do you feel safe at home: Yes victim of physical abuse: No victim of emotional abuse: No victim of sexual abuse: No would you like helpful sources: No ROS Obtained: Yes All systems reviewed & no additional complaints except as documented Physical Exam General General appearance: alert, in no apparent distress and obese Head Head exam: atraumatic and normocephalic Eye Eye exam: Present normal appearance, PERRL and EOMI ENT ENT exam: Present normal exam, normal oropharynx, mucous membranes moist and normal external ear exam Neck Neck exam: Present normal inspection, full ROM and trachea midline; Absent tenderness Chest Chest inspection: Present normal inspection and symmetric chest wall rise; Absent tenderness Respiratory Respiratory exam: Present normal lung sounds bilaterally; Absent respiratory distress, wheezes, stridor or accessory muscle use Cardiovascular Cardiovascular exam: Present regular rate and normal rhythm Abdominal Exam Abdominal exam: Present soft and tenderness (Right upper quadrant, mild); Absent distention, guarding, rebound or rigidity Extremities Exam Extremities exam: Present normal inspection, full ROM and normal capillary refill; Absent tenderness or edema Back Exam Back exam: Present normal inspection and full ROM; Absent tenderness Neurological Exam Neurological exam: Present alert, oriented X3, CN II-XII intact and normal gait; Absent motor sensory deficit Psychiatric Psychiatric exam: Present normal affect and normal mood Skin Skin exam: Present warm and dry Medical Decision Making Medical Records Medical records reviewed: Yes I reviewed the patient's medical records. Jose Inquiry Pt receiving controlled substance: No Vital Signs: 07/28/23 21:02 Temperature 98.1 F Temperature Source Oral Pulse Rate [Left Radial] 73 Respiratory Rate 18 Blood Pressure [Right Arm] 168/81 H Blood Pressure Mean [Right Arm] 110 Blood Pressure Source [Right Arm] Automatic Cuff Blood Pressure Position [Right Arm] Sitting 02 Sat by Pulse Oximetry 97 Oxygen Delivery Method Room Air Lab Data Lab results reviewed: Yes I reviewed the patient's lab results. Lab Results 07/28/23 20:50: Urine Color Yellow, Urine Appearance Clear, Urine pH 7.5, Ur Specific [place] 1.020, Urine Protein Negative, Urine Glucose (UA) Negative, Urine Ketones Negative, Urine Blood Negative, Urine Nitrate Negative, Urine Bilirubin Negative, Urine Urobilinogen 0.2, Ur Leukocyte Esterase Negative, Urine RBC None, Urine WBC Occasional, Ur Squamous Epith Cells 10-20, Urine Bacteria 1+ 07/28/23 20:54: WBC 13.5 H, RBC 4.73, Hgb 13.1, Hct 39.6, MCV 83.8, MCH 27.7, MCHC 33.1, RDW 14.9, Plt Count 240, MPV 7.9, Neut % (Auto) 54.6, Lymph % (Auto) 37.1, [place] % (Auto) 4.6, Eos % (Auto) 2.7, Baso % (Auto) 1.0, Neut # (Auto) 7.3, Lymph # (Auto) 5.0 H, [place] # (Auto) 0.6, Eos # (Auto) 0.4, Baso # (Auto) 0.1, Sodium 138, Potassium 3.8, Chloride 107, Carbon Dioxide 26, Anion Gap 8.8, BUN 6 L, Creatinine 0.60, Estimated Creat Clear 123, Estimated GFR 126, Est GFR ( Amer) 153, Glucose 104 H, Calcium 8.9, Total Bilirubin 0.3, AST 51 H, ALT 49, Alkaline Phosphatase 111, Total Protein 7.1, Albumin 3.9, Globulin 3.2, Albumin/Globulin Ratio 1.2, Lipase 73, Serum HCG, Qual Negative 07/28/23 20:54 07/28/23 20:54 Orders (Tests/Meds): ED MEDICATIONS Generic Name Dose Route Start Last Admin Trade Name Freq PRN Reason Stop Dose Admin Sodium Chloride 8 ml 07/28/23 20:52 Sodium Chloride 0.9% 10ml Vial IV 08/27/23 20:51 NEEDED PRN dilute pepcid Sodium Chloride 10 ml 07/28/23 21:30 07/28/23 21:31 Sodium Chloride 0.9% 10ml Syr (Rad Only) IV 08/27/23 21:29 10 ml NEEDED PRN Administration Maintain IV Site Discontinued Medications Generic Name Dose Route Start Last Admin Trade Name Freq PRN Reason Stop Dose Admin Acetaminophen 1,000 mg 07/28/23 20:51 07/28/23 21:02 Acetaminophen 1,000mg/100ml Vial IV 07/28/23 20:52 1,000 mg ONCE ONE Administration Famotidine 20 mg 07/28/23 20:52 07/28/23 21:02 Famotidine 20mg/2ml Vial IV 07/28/23 20:53 20 mg ONCE ONE Administration Lactated Ringer's 1,000 mls @ 999 mls/hr 07/28/23 20:51 07/28/23 21:02 Lactated Ringer's 1000 Ml Bag IV 07/28/23 21:51 999 mls/hr .Q1H1M ONE Administration Iopamidol 75 ml 07/28/23 21:30 07/28/23 21:31 Iopamidol-370 (76%);100ml Bottle IV 07/28/23 21:31 75 ml ONCE ONE Administration Ketorolac Tromethamine 15 mg 07/28/23 21:28 07/28/23 21:37 Ketorolac 30mg/Ml Vial IV 07/28/23 21:29 15 mg ONCE ONE Administration Ondansetron HCl 4 mg 07/28/23 20:51 07/28/23 21:03 Ondansetron 4mg/2ml Vial IV 07/28/23 20:52 4 mg ONCE ONE Administration ORDERS Category Date Time Status CT abdomen pelvis w con Stat Cat Scan 07/28/23 21:07 Completed Complete Blood Count Auto Diff Stat Lab 07/28/23 20:54 Completed Comprehensive Metabolic Panel Stat Lab 07/28/23 20:54 Completed Lipase Stat Lab 07/28/23 20:54 Completed Serum [HCG Qualitative, Serum] Stat Lab 07/28/23 20:54 Completed Urinalysis and Microscopic Stat Lab 07/28/23 20:50 Completed Medical Decision Narrative: In summary, this patient is a 23-year-old female presenting to the Emergency Department for evaluation of right upper quadrant abdominal pain, nausea, vomiting, and diarrhea. Differential diagnoses considered include but are not limited to cholecystitis, pancreatitis, gastroenteritis, constipation, colitis. Ruling out the most morbid conditions drove assessment. It should be noted patient's history includes obesity which is not at goal therapy. This complicates all aspects of care by increasing patient's risk for morbidity. I reviewed patient's past medical records and noted previous evaluation by general surgery with EGD and right upper quadrant ultrasound as per HPI. Workup included CBC, CMP, lipase, test, urinalysis, CT abdomen pelvis with IV contrast. She was given a bolus of IV fluids as well as IV acetaminophen, Toradol, Pepcid, and Zofran for symptomatic improvement. I independently interpreted CT scan prior to the radiologist read and noted no stranding around her gallbladder, gallstones, or other concerns. Please see their read for final interpretation. Labs were obtained that demonstrated very mild [place] ptosis and very mildly elevated AST, which the AST elevation is chronic, but no other acute concerning abnormalities. On reassessment, patient had good improvement after administration of as above. She is able to tolerate oral intake. Abdominal exam is benign.. At this time, patient was deemed to be appropriate for discharge home. I felt likely has gastroenteritis at this time. She is given prescriptions for pantoprazole and Zofran and instructions for close outpatient follow-up and strict return precautions. She was discharged after all questions were answered. Critical Care Critical Care Time Critical Care Time: No
[2023-07-28] MEDS: SODIUM CHLORIDE 0.9% 10ML SYR (RAD ONLY) 10 ML IV (21:31)
[2023-07-28] MEDS: IOPAMIDOL-370 (76%);100ML BOTTLE 75 ML IV (21:31)
[2023-07-28] MEDS: KETOROLAC 30MG/ML VIAL 15 MG IV (21:37)
--- NOTE | 2023-07-28 22:22 | PC.NURSE ---
pt tolerating PO intake well. MD Eduardo notified.
[2023-07-28 22:46] VITALS: BP 121/66; PULSE 86; RESP 18; TEMP 36.8; O2SAT 97
== END 2023-07-28 22:48 | disposition home or self-care (01) ==
PROVIDERS: Emergency Provider Emergency Medicine; PCP Physician Assistant
DX: R10.11 Right upper quadrant pain (principal); R11.2 Nausea with vomiting, unspecified; R19.7 Diarrhea, unspecified; K21.9 Gastro-esophageal reflux disease without esophagitis
CPT/HCPCS: 74177; 80053; 81001; 83690; 84703; 85025; 96361; 96374; 96375; 99284; J0131; J2405; Q9967

== ENCOUNTER 2024-03-27 14:09 | Emergency (ER) | payer OTHER, SELFPAY ==
[2024-03-27 14:45] VITALS: BP 134/86; PULSE 89; RESP 18; TEMP 37.1; O2SAT 99; BMI 57.2
--- NOTE | 2024-03-27 15:08 | ED_ITS ---
Discharge Plan Disposition Patient Disposition: Home, Self-Care Condition: Good Prescriptions Prescriptions: No Action hydroxyzine HCl 25 mg tablet 25 mg PO BID PRN (Reason: anxiety) Qty: 30 2RF olanzapine 5 mg tablet 5 mg PO HS Qty: 90 0RF pantoprazole [Protonix] 40 mg tablet,delayed release (DR/EC) 40 mg PO DAILY Qty: 30 2RF sertraline 50 mg tablet 50 mg PO DAILY Qty: 90 0RF naproxen 500 mg tablet 500 mg PO BID PRN (Reason: pain) Qty: 60 2RF spironolactone 50 mg tablet 50 mg PO DAILY Qty: 30 2RF ibuprofen [IBU] 800 mg tablet 800 mg PO Q8H PRN (Reason: pain) Qty: 20 0RF Referrals Follow up/Referrals: German Morris MD [Staff Physician] - See instructions Provider,MD Vijay [Primary Care Provider] - See instructions Activity Restrictions/Add. Instructions Additional Instructions/Restrictions: Make a follow up appointment with the MANAGER ACCOUNT MANAGEMENT of your choice. Increase fluids and try to maintain optimal health for . Clinical Impressions Clinical Impression: Missed menses Instructions Patient Instructions: In-Home Tests: Your Questions Answered, Herbs and Supplements to Avoid During and (Alternative Therapy), Home and Clinic Tests Print Language Print Language: French Discharge ED Provider: Deb Fatima [facility] General Stated complaint: positive preg test, no period for 2 months Mode of Arrival: Ambulatory Source of Information: Patient Limitations: No Limitations Time Seen by Provider: 03/27/24 15:07 Description of Symptoms (Recalled from Triage Doc. by RN): PATIENT REQUESTING BLOOD TEST. SHE REPORTS 2 NEGATIVE AND 1 POSITIVE AT HOME TESTS AND STATES SHE HAS NOT HAD A PERIOD IN 2 MONTHS HEENT Symptoms (Recalled from RN notes): No Resp Symptoms (Recalled from RN notes): No Skin Symptoms (Recalled from RN notes): No MS Symptoms (Recalled from RN notes): No Functional Status (Recalled from RN notes): WNL History of Present Illness Provider Complaint: Pt requests a blood drawn test. She reports that she has not had a period in 2 months and has taken several tests that were negative and one test that was positive. She reports that her breasts are very tender. Related Data Previous Rx's ?Medication ?Instructions ?Recorded ibuprofen 800 mg tablet (IBU) 800 mg PO Q8H PRN pain #20 tabs 10/07/22 hydroxyzine HCl 25 mg tablet 25 mg PO BID PRN anxiety #30 tabs 11/13/23 naproxen 500 mg tablet 500 mg PO BID PRN pain #60 tabs 11/13/23 olanzapine 5 mg tablet 5 mg PO HS #90 tabs 11/13/23 pantoprazole 40 mg tablet,delayed 40 mg PO DAILY #30 tabs 11/13/23 release (Protonix) sertraline 50 mg tablet 50 mg PO DAILY #90 tabs 11/13/23 spironolactone 50 mg tablet 50 mg PO DAILY #30 tabs 11/13/23 Allergies Allergy/AdvReac Type Severity Reaction Status Date / Time No Known Allergies Allergy Verified 11/13/23 14:19 Worker's Comp Is this a Worker's Comp case?: No [facility] Disclaimer: The information contained in this section may have been updated after the patient was seen, as this information can be updated by other users. Medical History (Updated 03/27/24 @ 15:20 by Deb Fatima APRN) Maribeth-Gordon tear Depression Anxiety Attention Deficit Hyperactivity Disorder (ADHD) Surgical History No significant past surgical history Family History Other Family history of myocardial infarction Family history of stroke Social History Smoking Status: Never smoker alcohol intake: current alcohol intake frequency: holidays/special occasions only substance use type: denies use current occupational status: unemployed Travel in the last 8 weeks: None household members: family housing: house lives independently: No education level: high school caffeine: Yes special tonia needs: No agree to transfusion: No do you feel safe at home: Yes victim of physical abuse: No victim of emotional abuse: No victim of sexual abuse: No would you like helpful sources: No Have you lived/traveled outside US in past 30 days?: No Contact w/someone who lives/traveled outside US past 30 days?: No Exposure to someone with infectious disease in past 14 days?: No Do you have a fever (greater than 100.4 F or 38 C)?: No Have you tested positive for COVID-19: No Exposed to someone with COVID-19 in past 14 days?: No Do you have a sore throat?: No Do you have a cough?: No Do you have any weakness?: No Do you have any diarrhea?: No Are you experiencing any unusual bleeding?: No Do you have any muscle aches/pain?: No Do you have any abdominal pain?: No Are you experiencing loss of taste or smell?: No ROS Obtained: Yes All systems reviewed & no additional complaints except as documented Constitutional Constitutional: Reports system reviewed and no additional complaints, except as documented Eyes Eyes: Reports system reviewed and no additional complaints, except as documented ENT Ears, Nose, Mouth, and Throat: Reports system reviewed and no additional complaints, except as documented Cardiovascular Cardiovascular: Reports system reviewed and no additional complaints, except as documented Respiratory Respiratory: Reports system reviewed and no additional complaints, except as documented Gastrointestinal Gastrointestingal: Reports system reviewed and no additional complaints, except as documented Genitourinary Female Genitourinary: Reports system reviewed and no additional complaints, except as documented Musculoskeletal Musculoskeletal: Reports system reviewed and no additional complaints, except as documented Integumentary/Breasts Skin/Breast: Reports system reviewed and no additional complaints, except as documented Neurologic Neurologic: Reports system reviewed and no additional complaints, except as documented Endocrine Endocrine: Reports system reviewed and no additional complaints, except as documented Hematologic/Lymphatic Henatologic/Lymphatic: Reports system reviewed and no additional complaints, except as documented Allergic/Immunologic Allergic/Immunologic: Reports system reviewed and no additional complaints, except as documented Physical Exam General General appearance: alert and in no apparent distress Head Head exam: atraumatic and normocephalic Eye Eye exam: Present normal appearance ENT ENT exam: Present normal exam Neck Neck exam: Present normal inspection Chest Chest inspection: Present normal inspection and symmetric chest wall rise Respiratory Respiratory exam: Present normal lung sounds bilaterally Cardiovascular Cardiovascular exam: Present regular rate, normal rhythm and normal heart sounds Abdominal Exam Abdominal exam: Present soft and normal bowel sounds Extremities Exam Extremities exam: Present normal inspection Back Exam Back exam: Present normal inspection Neurological Exam Neurological exam: Present alert and oriented X3 Psychiatric Psychiatric exam: Present normal affect and normal mood Skin Skin exam: Present warm, dry and intact Lymphatic Lymphatic Findings: no adenopathy Medical Decision Making Medical Records Screening: Per USPSTF and CDC recommendations, given the prevalence of disease in our region, it is our hospital?s policy to screen for HIV and viral Hepatitis for all patients aged 18 and over and those with ongoing risk factors. Jose Inquiry Pt receiving controlled substance: No Jose was queried for this patient: No Vital Signs: 03/27/24 14:45 Temperature 98.8 F Temperature Source Oral Pulse Rate [Left Brachial] 89 Respiratory Rate 18 Blood Pressure [Left Arm] 134/86 Blood Pressure Mean [Left Arm] 102 Blood Pressure Source [Left Arm] Automatic Cuff Blood Pressure Position [Left Arm] Sitting 02 Sat by Pulse Oximetry 99 Oxygen Delivery Method Room Air Orders (Tests/Meds): ORDERS Category Date Time Status Beta HCG, Qual [HCG Qualitative, Serum] Stat Lab 03/27/24 14:54 Ordered
[2024-03-27 15:22] VITALS: BP 134/86; PULSE 89; RESP 18; TEMP 37.1; O2SAT 99
[2024-03-27 16:31] LABS: HCG Qualitative, Serum Negative (Negative)
== END 2024-03-27 15:24 | disposition home or self-care (01) ==
PROVIDERS: Emergency Provider Nurse Practitioner Family
DX: N92.6 Irregular menstruation, unspecified (principal); Z32.00 Encounter for pregnancy test, result unknown
CPT/HCPCS: 84703; 99212; G0381

== ENCOUNTER 2024-08-26 09:41 | Outpatient (CLI) | payer OTHER, SELFPAY ==
--- OUTSIDE RECORDS SUMMARY | 2021-03-15 09:15 | XMS_ITS | Continuity of Care Document ---
Author Organization [facility] Address [address] [place] [address] Phone Care Team Providers Care Electrolysis Needle Operator Name Role Phone Jacobo ANDERSONAnatra Unavailable Unavailable [...] Active dexmethylphenidate ER 25 mg capsule,extended release [id number] take 1 capsule by oral route every [...] Providers Copied on Encounter OFFICE/OUTPA TIENT VISIT, [facility], [address], [place], [place], [id number] , [place] tel:[phone] [facility] Patient (chief complaint) MenorrhagiaIrregular menstruation, unspecifiedADHDNonadh erence to medical treatment 2 Jacobo Uzma. [address], [id number] , [place]. tel:[phone] Family History Family Member Type Diagnosis Age At Onset No Information Payers Payer name Insurance type Covered alliance party ID Authoriza tion(s) No Information Social History [...] (chief complaint). Description: Patient moved here from [place] temporarily in December, she is planning on moving back to [place] next month. She is having her records from her PCP in [place] sent here. States that since she's been [...] down to her last few capsules. juan jose/principal consultant Reason For Referral Reason For Referral No [...] New Patient Patient moved he re from [place] temporarily in December, she is planning on moving back to [place] next month. She is having her records from her PCP in [place] sent here. States that since she's been [...] down to her last few capsules. juan jose/principal consultant Functional Status Date Functional Assessmen t No Information Instructions Date Instruction Additional Infor mation No Information Assessments Type Assessment Date assessment Menorrhagia assessment Irregular menstruation, unspecif ied assessment ADHD impression she said main reason she is here is her ADHD med is out. has a PCP in [place] , Dr. Michael? 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 told her I am not comfortable [...] to her and even showed her the [employer] system that she hasnt had it since July. she said her PCP in [place] gave it to her in [place], i asked her to call her PCP [...] not sexually active. I dont know her, INFORMATION [employer] today. no records. so impression offered blood work s he declined. was on the phone with her Mother and her Uncle assessment Nonadherence to medical treatmen t impression I called her PCP in [place], spoke with Ori , Dr. Tamera Michael nurse and he said she has to come back to get it there. she had in december , then October. not supposed to take like this! it is daily, never called for refills. so Mental Status Date Cognitive Assessment Orientation - [place] ed to time, place, person, situation. Patient Care Teams Name Effective Dates (start - stop) Status Members No Information
[2024-08-26 18:14] LABS: Basophils % 0.3 % (0.1-2.0); Eosinophils # 0.2 Kmm3 (0.0-0.4); Eosinophils % 1.8 % (0.1-12.0); Hemoglobin 13.6 g/dL (12.2-16.2); Immature Granulocytes # 0.06 10^3uL; Immature Granulocytes % 0.5 %; Lymphocytes # 3.7 K/mm3 (0.7-4.5); Lymphocytes % 31.4 % (10-50); Mean Corpuscular HGB Conc 32.4 g/dL (31.8-35.4); Mean Corpuscular Volume 83.5 fl (81-99); Mean Platelet Volume 10.5 fl (7.4-10.4); Monocytes # 0.5 K/mm3 (0.1-1.0); Monocytes % 4.5 % (1.7-9.3); Neutrophils # 7.3 K/mm3 (1.8-7.8); Neutrophils % 61.5 % (37.0-80.0); Nucleated Red Blood Cells # 0 10^3/uL; Nucleated Red Blood Cells % 0 %; Platelet Count 261 K/mm3 (142-424); Red Blood Count 5.03 M/mm3 (4.20-5.40); White Blood Count 11.9 K/mm3 (4.8-10.8)
[2024-08-26 18:45] LABS: Hemoglobin A1C 6.3 % (4.0-6.0)
[2024-08-26 19:30] LABS: Anion Gap 13.8 mEq/L (5-15); Blood Urea Nitrogen 7 mg/dl (7-17); Carbon Dioxide 25 mmol/L (22.0-30.0); Chloride 102 mmol/L (98-107); Estimated Glomerular Filt Rate 105 ml/min (>60); GFR (African American) 127 ML/MIN (>60); Potassium 3.8 mmoL/L (3.5-5.1); Sodium 137 mmol/L (136-145)
[2024-08-26 19:31] LABS: Alanine Aminotransferase 45 U/L (12-78); Albumin Level 4.2 g/dl (3.5-5.0); Albumin/Globulin Ratio 1.4 (1.1-1.8); Alkaline Phosphatase 107 U/L (38-126); Aspartate Amino Transferase 42 U/L (14-36); Bilirubin,Total 0.5 mg/dl (0.2-1.3); Calcium 9.8 mg/dl (8.4-10.2); Chol/HDL Ratio 4.8 (1-3.5); Cholesterol 171 mg/dl (140-200); Glucose 142 mg/dl (74-100); HDL Cholesterol 36 mg/dl (40-60); Total Protein,Serum 7.2 g/dl (6.3-8.2); Triglycerides 253 mg/dl (30-150); VLDL Cholesterol 51 mg/dL (0-40)
[2024-08-26 19:42] LABS: Direct LDL Cholesterol 94.04 mg/dL (100-129)
[2024-08-26 19:49] LABS: 25-OH Vitamin D, Total 23.5 ng/mL (30-100)
[2024-08-26 20:01] LABS: Thyroid Stimulating Hormone 1.38 uIU/mL (0.465-4.68)
== END 2024-08-26 23:59 | disposition home or self-care (01) ==
LOC: LAB.DROPOF 08-29 09:41
PROVIDERS: PCP Family Medicine; Visit Provider Family Medicine
DX: Z76.89 Persons encountering health services in other specified circumstances (principal)
CPT/HCPCS: 80053; 80061; 82306; 83036; 84443; 85025

== ENCOUNTER 2025-01-17 09:40 | Emergency (ER) | payer OTHER, SELFPAY ==
--- OUTSIDE RECORDS SUMMARY | 2021-03-15 08:15 | XMS_ITS | Continuity of Care Document ---
Author Organization [facility] Address [address] [place] [place] [address] Phone Care Team Providers Care Inspector Motor Vehicles Name Role Phone Jacobo ANDERSONAnatra Unavailable Unavailable Allergies, Adverse Reactions, Alerts Substance Reaction Status Criticality No Known Allergies Active No Inform ation Medications Medication Instructions Dosage Effective Dates (start - stop) Status Comments Microgestin FE 03/28 (28) 1 mg-20 mcg (21)/75 mg (7) tablet take 1 tablet by oral route every day 1.00 tablet - Active Sprintec (28) 0.25 mg-35 mcg tablet take 1 tablet by oral route every day 1.00 tablet - No Longer Active dexmethylphenidate ER 25 mg capsule,extended release [id number] take 1 capsule by oral route every day in the morning 25 MG - No Longer Active Procedures Procedure Date URINE TEST URINALYSIS, AUTO W/SCOPE DRUG SCREEN URINE OFFICE/OUTPATIENT VISIT, NEW TOBACCO USE, SMOKING, ASSESS TOBACCO NON-USER BLOOD PRESSURE, MEASURED WEIGHT RECORDED VITAL SIGNS RECORDED BODY MASS INDEX DOCD NEG SCRN DEP SYMP BY DEPTOOL NO SIG DEP SYMP BY DEP TOOL DIAST BP < 80 MM HG SYST BP LT 130 MM HG Results Test Name Date and Time Measure Units Reference Range Abnormal Flag Status Comments Panel Description: DRUG SCREEN (in House) Final BENZODIAZEPINES (in Office) Negative Final BARBITURATES (in Office) Negative Final Cocaine (in Office) Negative Fin al THC (in Office) Negative Final METHAMPHETAMINES (in Office) Negative Final OPIATES (in Office) Negative Fin al METHADONE (in Office) Negative F inal OXYCODONE (in Office) Negative F inal Methylenedioxymethamphetamin e (in Office) Negative Final PHENCYCLIDINE (in Office) Negative Final AMPHETAMINES (in Office) Negative Final BUPRENORPHINE (in Office) Negative Final Panel Description: URINALYSIS, AUTO W/ SCOPE Fi nal GLUCOSE LEVEL Negative MG/Dl Final GLUCOSE (FOR IN HOUSE UA) mg/dL Final KETONES, URINE Negative Final BILIRUBIN URINE Negative Final BLOOD, URINE Negative Final CLARITY, URINE Clear Final COLOR, URINE Light Final LEUKOCYTE ESTRACE, URINE Negative Final NITRATE, URINE Negative Final PH, URINE 8.0 5-8.50 Final PROTEIN, QUALITATIVE, URINE Negative Final SPECIFIC GRAVITY, URINE 1.025 Final UROBILINOGEN, URINE 0.2 E.U./dL 0.20-8 Final Panel Description: URINE TEST Final TEST Negative Final Advance Directives Directive Yes / No Effective Date File Name No Information Encounters Encounter Description Practice Location Reason(s) For Visit Diagnoses Date Provider Providers Copied on Encounter OFFICE/OUTPA TIENT VISIT, [facility], [address], [place], [place], [id number] , [place] tel:[phone] [facility] Patient (chief complaint) MenorrhagiaIrregular menstruation, unspecifiedADHDNonadh erence to medical treatment 2 Jacobo Uzma. [address], [id number] , [place]. tel:[phone] Family History Family Member Type Diagnosis Age At Onset No Information Payers Payer name Insurance type Covered democrat ID Authoriza tion(s) No Information Social History Type Description Quantity Date Captured Comments Alcohol Use Details No Caffeine Use Details coffee and soda 1 cup per day 2021 Tobacco Use Status Current non-smoker Smoking Status Never smoker Non-Smoking Tobacco Use Details : No Details Available : No Details Available Sex Female Sexual Orientation Don't Know Gender Identity Female Vital Signs Date / Time: Height Weight BMI Pulse Rate Blood Pressure Temperature Respiratory Rate Body Surface Area Head Circumference Head Circ. Percentile Wt./Daniel. Percentile BMI percentile Pulse Ox Inhaled Ox 1:23 PM 65.00 in 105.778 kg (233.20 lbs) 38.8 1 kg/m eter (2) 80 /min 112/68 mm[Hg] 97.90 F 16 /min 98 98 % 21 % Chief Complaint And Reason For Visit From encounter dated '03/15/2021 13:15'. New Patient (chief complaint). Description: Patient moved here from [place] temporarily in December, she is planning on moving back to [place] next month. She is having her records from her PCP in [place] sent here. States that since she's been up here her menstrual cycles have been weird, thinks it may have to do with stress. She is here because she wants a refill of her Adderall. She s tates that she cannot get her PCP to refill her medication here because of them [place] in a different state. She states she is down to her last few capsules. juan jose/de icer finisher Reason For Referral Reason For Referral No Information Plan Of Treatment Date Type Action Status Goal HRA. Due on due Goal Chlamydia Screening. Due on due Goal Hep C Ab. Due on due Goal HIV Screen. Due on due Goal Influenza Vaccine. Due on due Goal Td Vaccine. Due on due Goal HPV (1st). Due on due Goal Annual Exam. Due on 022 due Goal Tdap. Due on due Goal Gonorrhea Screening. Due on due Goal Depression screening. Due on due History Of Present Illness Encounter Date Complaint History Of Prese nt Illness New Patient Patient moved he re from [place] temporarily in December, she is planning on moving back to [place] next month. She is having her records from her PCP in [place] sent here. States that since she's been up here her menstrual cycles have been weird, thinks it may have to do with stress. She is here because she wants a refill of her Adderall. She states that she cannot get her PCP to refill her medication here because of them being in a different state. She states she is down to her last few capsules. juan jose/de icer finisher Functional Status Date Functional Assessmen t No Information Instructions Date Instruction Additional Infor mation No Information Assessments Type Assessment Date assessment Menorrhagia assessment Irregular menstruation, unspecif ied assessment ADHD impression she said main reason she is here is her ADHD med is out. has a PCP in [place] , Dr. Michael? 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 told her I am not comfortable giving her meds. she has been out for a while 5 months! whole process to see , do vandenbilt forms, etc. cant just walk into any clinic and ask for Adderall. sosince she said she made the appt for her Adderall that I had to give it to her. i explained to her and even showed her the [employer] system that she hasnt had it since July. she said her PCP in [place] gave it to her in [place], i asked her to call her PCP for refills, since she is moving back there. I spoke with Cristian about this. she said she was going to call her uncle about this to come in. I told her again I am not prescribing it today. UDS sent on her , checked MAT cup also. soMAT urine negative for ampetamines. no need for UDS send out. so impression doesnt remember when her menses was? in february? did a test. she said not sexually active. I dont know her, GLASS EDGER today. no records. so impression offered blood work s he declined. was on the phone with her Mother and her Uncle assessment Nonadherence to medical treatmen t impression I called her PCP in [place], spoke with Ori , Dr. Tamera Michael nurse and he said she has to come back to get it there. she had in december , then October. not supposed to take like this! it is daily, never called for refills. so Mental Status Date Cognitive Assessment Orientation - [place] ed to time, place, person, situation. Patient Care Teams Name Effective Dates (start - stop) Status Members No Information
[2025-01-17] VITALS (9 sets, daily range): BP systolic 114–146; BP diastolic 70–99; PULSE 69–98; RESP 14–18; TEMP 36.8; O2SAT 98–100; BMI 54.9
--- NOTE | 2025-01-17 09:45 | ECG_ITS ---
APPROVED REPORT Exam: Resting ECG HR:95 bpm ECG Measurements Heart Rate 95 AXES VA 168 P 50 QRSd 100 QRS 162 QT 338 T 46 QTc 391 Conclusion SINUS RHYTHM INDETERMINATE AXIS LOW QRS VOLTAGE IN PRECORDIAL LEADS [QRS DEFLECTION < 1.0 mV IN CHEST LEADS] ABNORMAL ECG Electronically signed by : SANDOR LONDON, 01/17/2025 15:03:30
--- NOTE | 2025-01-17 09:46 | XR_ITS ---
FINAL REPORT CLINICAL HISTORY: Nonspecific chest pain COMPARISON: None FINDINGS: A single frontal view of the chest was obtained. No acute pulmonary opacity is present. There is no evidence of effusion or pneumothorax. Mediastinum is unremarkable. Heart size is normal. IMPRESSION: No acute abnormality. Reviewed, Interpreted and Dictated by Priya Velazquez MD Transcribed by Kaela Madrid Authenticated and [facility]
--- NOTE | 2025-01-17 09:47 | [facility].EDCP ---
Discharge Plan Disposition Patient Disposition: Home, Self-Care Prescriptions Prescriptions: New ondansetron 4 mg tablet,disintegrating 4 mg PO Q8H PRN (Reason: nausea and vomiting) 4 Days Qty: 12 0RF No Action hydroxyzine HCl 25 mg tablet 25 mg PO BID PRN (Reason: anxiety) Qty: 30 2RF naproxen 500 mg tablet 500 mg PO BID PRN (Reason: pain) Qty: 60 2RF olanzapine 5 mg tablet 5 mg PO HS Qty: 90 0RF sertraline 50 mg tablet 50 mg PO DAILY Qty: 90 0RF spironolactone 50 mg tablet 50 mg PO DAILY Qty: 30 2RF Referrals Follow up/Referrals: Camila Thompson APRN [Primary Care Provider, Family Practice] - See instructions Activity Restrictions/Add. Instructions Additional Instructions/Restrictions: At this time it was felt you are safe to be discharged home. If new or worsening symptoms please do not hesitate to return the emergency department. Please take your nausea medicine as prescribed and follow-up with your family doctor within 1 week to see how your symptoms are progressing and if you need further investigation. Clinical Impressions Clinical Impression: Vomiting, Chest pain Print Language Print Language: Setswana Discharge ED Provider: Antonio Marie General Chief Complaint: Chest Pain Stated Complaint: Chest pain Time Seen by Provider: 01/17/25 09:46 History of Present Illness HPI narrative: Patient is a 24-year-old female who presents emergency department for evaluation of chest pain. Onset was acute over the last 24 hours, it occurs with cold air exposure. When she went outside today she had substernal chest pain that does not radiate. Yesterday she had vague epigastric discomfort which has subsided. No vomiting or diarrhea reported. No continued abdominal pain. Due to persistent symptoms she presents here for continued evaluation. Last menstrual period recently. No other acute complaints at this time. Please note that above description of symptoms, in this electronic medical record under categorization of recalled from ER triage doctor by RN are reflective of an initial nursing assessment, however, is not reflective of my full history and physical exam that was personally taken and clarified. Consequentially, this preceding description of symptoms, which may include the patient's categorized chief complaint in the EMR, do not reflect my personal clinical impression, and the ultimate description of history of present illness and patient stated complaints should be deferred to this section of the note. Unless stated otherwise or congruent with this section of the note, additional signs, symptoms, or incongruence should be interpreted as inaccurate with my clinical impression. Related Data Previous Rx's ?Medication ?Instructions ?Recorded hydroxyzine HCl 25 mg tablet 25 mg PO BID PRN anxiety #30 tabs 11/13/23 naproxen 500 mg tablet 500 mg PO BID PRN pain #60 tabs 08/26/24 olanzapine 5 mg tablet 5 mg PO HS #90 tabs 08/26/24 sertraline 50 mg tablet 50 mg PO DAILY #90 tabs 08/26/24 spironolactone 50 mg tablet 50 mg PO DAILY #30 tabs 08/26/24 ondansetron 4 mg disintegrating 4 mg PO Q8H PRN nausea and 01/17/25 tablet vomiting 4 days #12 tabs Allergies Allergy/AdvReac Type Severity Reaction Status Date / Time No Known Allergies Allergy Verified 08/26/24 15:35 [facility] Disclaimer: The information contained in this section may have been updated after the patient was seen, as this information can be updated by other users. Medical History Maribeth-Gordon tear Depression Anxiety Attention Deficit Hyperactivity Disorder (ADHD) Surgical History No significant past surgical history Family History Other Family history of myocardial infarction Family history of stroke Social History Smoking Status: Never smoker alcohol intake: current alcohol intake frequency: holidays/special occasions only substance use type: denies use current occupational status: unemployed Travel in the last 8 weeks?: None household members: family housing: house lives independently: No education level: high school caffeine: Yes special tonia needs: No agree to transfusion: No do you feel safe at home: Yes victim of physical abuse: No victim of emotional abuse: No victim of sexual abuse: No would you like helpful sources: No Have you lived/traveled outside US in past 30 days?: No Contact w/someone who lives/traveled outside US past 30 days?: No Exposure to someone with infectious disease in past 14 days?: No Do you have a fever (greater than 100.4 F or 38 C)?: No Have you tested positive for COVID-19?: No Exposed to someone with COVID-19 in past 14 days?: No Do you have a sore throat?: No Do you have a cough?: No Do you have any weakness?: No Do you have any diarrhea?: No Are you experiencing any unusual bleeding?: No Do you have any muscle aches/pain?: No Do you have any abdominal pain?: No Are you experiencing loss of taste or smell?: No Other Medical History Have you received the Flu Vaccine for this season: No Have you received the Pneumonia Vaccine: No ROS Obtained: Yes Systems reviewed as appropriate & no additional complaints except as documented Physical Exam General General appearance: alert and in no apparent distress Head Head exam: atraumatic and normocephalic Eye Eye exam: Present PERRL and EOMI ENT ENT exam: Present mucous membranes moist Neck Neck exam: Present normal inspection Chest Chest inspection: Present normal inspection and symmetric chest wall rise Respiratory Respiratory exam: Present normal lung sounds bilaterally; Absent respiratory distress Cardiovascular Cardiovascular exam: Present regular rate and normal rhythm Abdominal Exam Abdominal exam: Present soft; Absent tenderness Extremities Exam Extremities exam: Present normal inspection Neurological Exam Neurological exam: Present alert and CN II-XII intact Psychiatric Psychiatric exam: Present normal affect Skin Skin exam: Present warm and dry HEART Score HEART Score HEART Score assessment performed?: Yes History (anamnesis): Slightly suspicious ECG: Non-specific disturbance Age: <45 years Risk factors: No known risk factors Troponin: </= normal limit HEART Score: 1 Critical Care Critical Care Time Critical Care Time: No Medical Decision Making Jose Inquiry Pt receiving controlled substance: No Vital Signs Vital Signs: 01/17/25 09:40 01/17/25 09:40 01/17/25 09:51 Temperature 98.2 F 98.2 F Temperature Source Oral Oral Pulse Rate 98 H 92 H Pulse Rate [Right] 98 H Respiratory Rate 18 18 Blood Pressure 146/99 H Blood Pressure [Right Arm] 146/99 H Blood Pressure Mean Blood Pressure Mean [Right Arm] 114 Blood Pressure Source Automatic Cuff Blood Pressure Source [Right Arm] Automatic Cuff Blood Pressure Position Supine Blood Pressure Position [Right Arm] Supine 02 Sat by Pulse Oximetry 100 100 Oxygen Delivery Method Room Air Room Air 01/17/25 10:01 01/17/25 10:30 01/17/25 11:00 Temperature Temperature Source Pulse Rate 69 84 85 Pulse Rate [Right] Respiratory Rate 15 15 Blood Pressure 121/75 142/89 H 114/70 Blood Pressure [Right Arm] Blood Pressure Mean 90 Blood Pressure Mean [Right Arm] Blood Pressure Source Blood Pressure Source [Right Arm] Blood Pressure Position Blood Pressure Position [Right Arm] 02 Sat by Pulse Oximetry 99 99 98 Oxygen Delivery Method 01/17/25 11:15 01/17/25 11:30 01/17/25 12:00 Temperature Temperature Source Pulse Rate 83 83 85 Pulse Rate [Right] Respiratory Rate 14 16 Blood Pressure 127/88 130/83 Blood Pressure [Right Arm] Blood Pressure Mean 101 Blood Pressure Mean [Right Arm] Blood Pressure Source Blood Pressure Source [Right Arm] Blood Pressure Position Blood Pressure Position [Right Arm] 02 Sat by Pulse Oximetry 98 100 99 Oxygen Delivery Method Lab Data Labs: Lab Results 01/17/25 09:50: WBC 10.9 H, RBC 4.81, Hgb 13.7, Hct 40.4, MCV 84.0, MCH 28.5, MCHC 33.9, RDW 12.8, Plt Count 260, MPV 9.8, Neut % (Auto) 67.2, Lymph % (Auto) 24.6, Weld % (Auto) 5.4, Eos % (Auto) 1.7, Baso % (Auto) 0.5, Neut # (Auto) 7.3, Lymph # (Auto) 2.7, Weld # (Auto) 0.6, Eos # (Auto) 0.2, Baso # (Auto) 0.1, D-Dimer 0.56 H, Sodium 136, Potassium 3.9, Chloride 104, Carbon Dioxide 26, Anion Gap 9.9, BUN 8, Creatinine 0.70, Estimated Creat Clear 104, Estimated GFR 105, Est GFR ( Amer) 127, Glucose 108 H, Calcium 9.3, Total Bilirubin 0.7, AST 38 H, ALT 36, Alkaline Phosphatase 133 H, Troponin I < 0.01, Total Protein 8.2, Albumin 4.5, Globulin 3.7 H, Albumin/Globulin Ratio 1.2, Lipase 31, Serum HCG, Qual Negative, HCV Ab JAK w/Rflx PCR Qn Negative, HIV Ag/Ab Combo Qual Negative 01/17/25 11:31: Troponin I < 0.01 01/17/25 09:50 01/17/25 09:50 Response Orders (Tests/Meds): ED MEDICATIONS Discontinued Medications Generic Name Dose Route Start Last Admin Trade Name Gogo PRN Reason Stop Dose Admin Aspirin 324 mg 01/17/25 09:46 01/17/25 09:56 Aspirin 81mg Chewable Tablet PO 01/17/25 09:47 324 mg ONCE ONE Administration Ondansetron HCl 4 mg 01/17/25 11:05 01/17/25 11:22 Ondansetron 4mg/2ml Vial IV 01/17/25 11:06 4 mg ONCE ONE Administration ORDERS Category Date Time Status CXR --portable [XR chest portable] Stat Exams 01/17/25 09:46 Taken CBC w/Auto Diff [Complete Blood Count Auto Diff] Stat Lab 01/17/25 09:50 Completed CMP [Comprehensive Metabolic Panel] Stat Lab 01/17/25 09:50 Completed D-Dimer Stat Lab 01/17/25 09:50 Completed HCG Qualitative, Serum Stat Lab 01/17/25 09:50 Completed HIV Combo Stat Lab 01/17/25 09:50 Completed Hepatitis C Ab Qual. W/ RFX Stat Lab 01/17/25 09:50 Completed Lipase Stat Lab 01/17/25 09:50 Completed Trop I [Troponin I] Stat Lab 01/17/25 09:50 Completed Troponin I Q3H Lab 01/17/25 11:31 Completed Troponin I Q3H Lab 01/17/25 16:00 Ordered ECG Data Tracing #1: ECG Narrative: Independently interpreted by me rate is 95, rhythm is regular, axis is borderline rightward deviated, no ST elevation in anatomical contiguous leads, QTc 391. [facility] Narrative Medical Decision Narrative: In summary patient is a 24-year-old female past medical history of scrota above who presents emergency department for evaluation of chest pain. Patient is hemodynamically stable nontoxic-appearing upon arrival, afebrile. Differential diagnosis includes esophageal spasm, noncardiac chest pain, ACS, pulmonary embolism, among others. Workup in totality will be conducted with hematologic labs urine test EKG chest x-ray serial troponins. Initial inventions include aspirin. Patient has allergies to GI cocktail was considered will be deferred. Initial workup reviewed by me no significant leukocytosis, pulmonary embolism excluded per years criteria no transfusable anemia no INES or critical electrolyte abnormality lipase normal hCG negative initial troponin undetectably low. On repeat evaluation patient was still feeling nauseous and significant other at bedside states she has been vomiting all morning. She has a nontender abdomen on exam will give Zofran and p.o. challenge. Crystalloid resuscitation was considered but patient appears euvolemic will be deferred at this time. Chest x-ray informally interpreted by me no acute dense lobar opacities or large pneumothorax, no mediastinal air. No concern for Boerhaave syndrome based on history and overall appearance and hemodynamics. Serial troponins undetectably low patient underwent p.o. trial with successful. Given this patient is appropriate for outpatient management at this time and will follow-up with PCP on an outpatient basis.
[2025-01-17] MEDS: ASPIRIN 81MG CHEWABLE TABLET 324 MG PO (09:56)
[2025-01-17 10:08] LABS: Hematocrit 40.4 % (37.0-47.0); Hemoglobin 13.7 g/dL (12.2-16.2); Immature Granulocytes % 0.6 %; Mean Corpuscular HGB Conc 33.9 g/dL (31.8-35.4); Mean Corpuscular Hemoglobin 28.5 pg (27.0-31.2); Mean Corpuscular Volume 84.0 fl (81-99); Nucleated Red Blood Cells % 0 %; Platelet Count 260 K/mm3 (142-424); Red Blood Count 4.81 M/mm3 (4.20-5.40); Red Cell Distribution Width-SD 39.1 fL; White Blood Count 10.9 K/mm3 (4.8-10.8)
[2025-01-17 10:16] LABS: Alanine Aminotransferase 36 U/L (12-78); Albumin Level 4.5 g/dl (3.5-5.0); Albumin/Globulin Ratio 1.2 (1.1-1.8); Alkaline Phosphatase 133 U/L (38-126); Anion Gap 9.9 mEq/L (5-15); Aspartate Amino Transferase 38 U/L (14-36); Bilirubin,Total 0.7 mg/dl (0.2-1.3); Blood Urea Nitrogen 8 mg/dl (7-17); Calcium 9.3 mg/dl (8.4-10.2); Carbon Dioxide 26 mmol/L (22.0-30.0); Chloride 104 mmol/L (98-107); Creatinine Clearance Estimated 104 mL/min (50-200); Creatinine,Serum 0.70 mg/dl (0.52-1.04); Estimated Glomerular Filt Rate 105 ml/min (>60); GFR (African American) 127 ML/MIN (>60); Globulin 3.7 g/dL (1.3-3.2); Glucose 108 mg/dl (74-100); Lipase 31 U/L (23-300); Potassium 3.9 mmoL/L (3.5-5.1); Sodium 136 mmol/L (136-145); Total Protein,Serum 8.2 g/dl (6.3-8.2)
[2025-01-17 10:20] LABS: D-Dimer 0.56 ug/mL (0.0-0.5)
[2025-01-17 10:29] LABS: Troponin I < 0.01 ng/ml (0.00-0.034)
[2025-01-17 10:42] LABS: HCG Qualitative, Serum Negative (Negative)
--- NOTE | 2025-01-17 10:48 | PC.NURSE ---
Radiology bedside for CXR
[2025-01-17] MEDS: ONDANSETRON 4MG/2ML VIAL 4 MG IV (11:22)
[2025-01-17 11:32] LABS: Hepatitis C Ab Qual. W/ RFX NEGATIVE (Negative)
[2025-01-17 12:12] LABS: Troponin I < 0.01 ng/ml (0.00-0.034)
== END 2025-01-17 12:22 | disposition home or self-care (01) ==
PROVIDERS: Emergency Provider Emergency Medicine; PCP Family Medicine
DX: R07.9 Chest pain, unspecified (principal); R11.10 Vomiting, unspecified; F43.10 Post-traumatic stress disorder, unspecified; R41.9 Unspecified symptoms and signs involving cognitive functions and awareness
CPT/HCPCS: 71045; 80053; 83690; 84484; 84703; 85025; 85378; 86803; 87389; 93005; 96374; 99285; J2405